=== PATIENT | female | born 1965 | race Caucasian/White ===

== ENCOUNTER 2018-07-09 18:22 | Emergency (ER) | payer OTHER ==
[2018-07-09 18:32] VITALS: BP 112/78
--- NOTE | 2018-07-09 19:21 | UC ---
Complaint Female HPI - HPI Summary HPI Summary: The pt is a 52 y/o female presenting to c/o cloudy urine since yesterday worsened today morning. She notes bilateral flank pain rated 6/ in severity, dysuria, and occasional "burning" with urination but denies fever, chills, N/ V , diarrhea, and vaginal bleeding or discharge. The pain is worst in the morning upon rising. The pt also denies a recent hx of UTIs. This is scribe Penny Burks documenting for attending Dr. Kwasi Lyons I, Dr. Kwasi Lyons , personally performed the services described in this documentation as scribed in my presence and it is both accurate and complete. 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 Onset/Duration: Lasting Hours - 24 hrs, Lasting Days Timing: Constant - Worse in the morning upon rising Severity Initially: Moderate Severity Currently: Moderate Pain Intensity: 6 Pain Scale Used: 0-10 Numeric Character: Burning Alleviating Factor(s): Position - Standing up first thing in the morning Associated Signs And Symptoms: Negative: Fever, Vaginal Bleeding/Discharge, Vaginal Discharge, Nausea, Vomiting(# Of Episodes =) - Allergies/Home Medications Allergies/Adverse Reactions: Allergies Allergy/AdvReac Type Severity Reaction Status Date / Time aspirin Allergy Swelling Verified 07/09/18 18:33 latex Allergy Rash Verified 07/09/18 18:33 Penicillins Allergy Rash Verified 07/09/18 18:33 PMH/Surg Hx/FS Hx/Imm Hx Previously Healthy: No Cardiovascular History: Other - Anemia (during ) Other Cardiovascular History: . GI/ History: Gastroesophageal Reflux, Other - Crohn's Other GI/ History: . Other Neurological History: Migraines, Other History Of: Negative For: HIV - Surgical History Surgical History: Yes Surgery Procedure, Year, and Place: C SECTION, 1985,RT FOOT NEUROMA REMOVAL - Family History Known Family History: Positive: Blood Disorder - denies FMH of clotting disorder , Other - [place] - Social History Occupation: Unemployed, Employed Full-time Lives: With Family Alcohol Use: None Substance Use Type: None Smoking Status (MU): Former Smoker Type: Cigarettes, eCigarettes Amount Used/How Often: 1-2 cigg, when stressed, maybe 3 x a week Have You Smoked in the Last Year: Yes When Did the Patient Quit Smoking/Using Tobacco: 05/2015 Household Exposure Type: Cigarettes - Immunization History Most Recent Influenza Vaccination: none Review of Systems Constitutional: Negative - fever, chills Gastrointestinal: Negative - N/ V/D Genitourinary: Negative - vaginal bleeding or discharge, Dysuria Musculoskeletal: Negative - Bilateral flank pain All Other Systems Reviewed And Are Negative: Yes Physical Exam - Summary Physical Exam Summary: General: well-appearing, no pain distress Skin: warm, color reflects adequate perfusion, dry Head: normal Eyes: EOMI, ELAYNE ENT: normal Neck: supple, nontender Respiratory: CTA, breath sounds present Cardiovascular: RRR Abdomen: soft, nontender Bowel: present Musculoskeletal: Mild tenderness to bilateral flanks , strength/ROM intact Neurological: sensory/motor intact, A&O x3 Psychological: affect/mood appropriate Triage Information Reviewed: Yes Vital Signs: Initial Vital Signs Temp 98.1 F 07/09/18 18:27 Pulse 69 07/09/18 18:27 Resp 16 07/09/18 18:27 BP 112/78 07/09/18 18:27 Pulse Ox 100 07/09/18 18:27 Vital Signs Reviewed: Yes Complaint Female Dx - Course Course Of Treatment: DISCUSSED UA RESULTS WITH THE PATIENT. SHE DENIES C/O POSSIBLE STI AND IS NOT AWARE OF ANY ABNORMAL VAGINAL DISCHARGE. DISCUSSED ABX TREATMENT FOR DYSURIA AND PELVIC EXAM. THE PATIENT PREFERS TO TREAT DYSURIA WITH ABX AND F/U WITH HER PMD IF NEEDED FOR FURTHER EVALUATION/PELVIC EXAM. SHE WILL RETURN HERE IF SHE WORSENS. - Differential Dx/Diagnosis Provider Diagnoses: DYSURIA Discharge - Sign-Out/Discharge Documenting (check all that apply): Patient Departure - Discharge Plan Condition: Stable Disposition: HOME Prescriptions: Sulfamethox/Trimethoprim DS* [Bactrim DS 800/160 TAB*] 1 tab PO BID #14 tab Patient Education Materials: Dysuria (ED) Referrals: Mildred Emanuel MD [Primary Care Provider] - Additional Instructions: FOLLOW UP WITH YOUR DOCTOR IF NOT COMPLETELY IMPROVED. GET RECHECKED FOR ANY WORSENING OF YOUR CONDITION; PAIN, FEVER, YOU FEEL ILL OR QUESTIONS OR CONCERNS. - Billing Disposition and Condition Condition: STABLE Disposition: Home
== END 2018-07-09 20:00 | disposition home or self-care (01) ==
LOC: UCEAST 18:22
DX: R30.0 Dysuria (principal); Z88.6 Allergy status to analgesic agent; Z87.891 Personal history of nicotine dependence
CPT/HCPCS: 81003; 99212; G0463

== ENCOUNTER 2018-10-27 14:12 | Emergency (ER) | payer OTHER ==
[2018-10-27 14:29] VITALS: BP 149/92
--- NOTE | 2018-10-27 14:50 | UC ---
Respiratory Complaint HPI - HPI Summary HPI Summary: 53-year-old woman comes to clinic today with a chief complaint of cough and chest congestion. Been going on about 9 days. She's had wheezing she was short of breath when she lays down and better when she stands up. No recent fevers. Sputum is yellow. Started out as upper respiratory tract infection symptoms and now it's into her chest. 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 Pain Intensity: 8 - Allergies/Home Medications Allergies/Adverse Reactions: Allergies Allergy/AdvReac Type Severity Reaction Status Date / Time aspirin Allergy Swelling Verified 10/27/18 14:29 latex Allergy Rash Verified 10/27/18 14:29 Penicillins Allergy Rash Verified 10/27/18 14:29 Home Medications: Home Medications guaiFENesin [Mucinex] 600 mg PO 10/27/18 [History] PMH/Surg Hx/FS Hx/Imm Hx GI/ History: Gastroesophageal Reflux Other History Of: Negative For: HIV - Surgical History Surgical History: Yes Surgery Procedure, Year, and Place: C SECTION, 1985,RT FOOT NEUROMA REMOVAL - Family History Known Family History: Positive: None, Blood Disorder - denies FMH of clotting disorder, Other - [place] - Social History Alcohol Use: None Substance Use Type: None Smoking Status (MU): Former Smoker Type: Cigarettes, eCigarettes Amount Used/How Often: 1-2 cigg, when stressed, maybe 3 x a week Have You Smoked in the Last Year: Yes When Did the Patient Quit Smoking/Using Tobacco: 05/2015 Household Exposure Type: Cigarettes - Immunization History Most Recent Influenza Vaccination: none Review of Systems All Other Systems Reviewed And Are Negative: Yes Constitutional: Positive: Negative Skin: Positive: Negative Eyes: Positive: Negative ENT: Positive: Sore Throat, Nasal Discharge, Sinus Congestion Respiratory: Positive: Shortness Of Breath, Cough, Other - wheezing Cardiovascular: Positive: Negative Gastrointestinal: Positive: Negative Motor: Positive: Negative Neurovascular: Positive: Negative Musculoskeletal: Positive: Negative Neurological: Positive: Negative Psychological: Positive: Negative Is Patient Immunocompromised?: No Physical Exam Triage Information Reviewed: Yes Appearance: No Pain Distress, Well-Nourished, Ill-Appearing - mild Vital Signs: Initial Vital Signs Temp 96.2 F 10/27/18 14:25 Pulse 82 10/27/18 14:25 Resp 18 10/27/18 14:25 BP 149/92 10/27/18 14:25 Pulse Ox 99 10/27/18 14:25 Vital Signs Reviewed: Yes Eye Exam: Normal Eyes: Positive: Conjunctiva Clear ENT: Positive: Pharyngeal erythema, Nasal congestion, Nasal drainage, TMs normal Neck exam: Normal Neck: Positive: Supple Respiratory: Positive: No respiratory distress, Wheezing Cardiovascular: Positive: RRR Musculoskeletal Exam: Normal Musculoskeletal: Positive: Strength Intact, ROM Intact, No Edema Neurological Exam: Normal Neurological: Positive: Alert, Muscle Tone Normal Psychological Exam: Normal Psychological: Positive: Age Appropriate Behavior Skin Exam: Normal UC Diagnostic Evaluation - Laboratory O2 Sat by Pulse Oximetry: 99 Respiratory Course/Dx - Course Course Of Treatment: Patient state out of her symptoms were discussed viral versus bacterial infections and the role of antibiotics. Patient would like to start an antibiotic now. I'll put primary care reevaluation sooner if worsen. - Differential Dx/Diagnosis Provider Diagnosis: Bronchitis with bronchospasm Discharge - Sign-Out/Discharge Documenting (check all that apply): Patient Departure All imaging exams completed and their final reports reviewed: No Studies - Discharge Plan Condition: Stable Disposition: HOME Prescriptions: Albuterol HFA INHALER* [Ventolin HFA Inhaler*] 2 puff INH Q4H PRN #1 mdi PRN Reason: Wheezing Azithromyxin RINA (NF) [Z-Rina (Zithromax) 250 mg tabs #6] 2 tab PO .TODAY, THEN 1 DAILY #6 tab Benzonatate CAP* [Tessalon 100 MG CAP*] 100 mg PO TID PRN #20 cap PRN Reason: Cough Patient Education Materials: Acute Bronchitis (ED), Bronchospasm (ED) Referrals: Mildred Emanuel MD [Primary Care Provider] - Additional Instructions: FOLLOW UP WITH YOUR DOCTOR IF NOT COMPLETELY IMPROVED. GET RECHECKED FOR ANY WORSENING OF YOUR CONDITION OR QUESTIONS OR CONCERNS. - Billing Disposition and Condition Condition: STABLE Disposition: Home
== END 2018-10-27 15:06 | disposition home or self-care (01) ==
LOC: UCEAST 14:12
DX: J20.9 Acute bronchitis, unspecified (principal); Z88.0 Allergy status to penicillin; Z88.6 Allergy status to analgesic agent; Z87.891 Personal history of nicotine dependence
CPT/HCPCS: 99212; G0463

== ENCOUNTER 2019-02-24 15:30 | Inpatient (IN) | payer MEDICAID, OTHER ==
[2019-03-09] MEDS ORDERED: Buffered Lidocaine 1% SYRIN* 1 ML/SYRINGE INTRADERM ONE (11:51)
[2019-03-10] MEDS ORDERED: Lactated Ringers 1000 ML Bag* 1,000 ML IV SCH (06:00)
[2019-03-10] MEDS ORDERED: Sodium Citrate/Citric Acid* 15 ML UDC PO ONE (06:00)
[2019-03-10] MEDS ORDERED: Sodium Citrate/Citric Acid* 15 ML UDC ONE (07:41)
[2019-03-10] MEDS ORDERED: Heparin VIAL(*) 5000 UNITS/ML VIAL (FIVE THOUSAND) ONE ×2 (07:41→14:39)
[2019-03-10] MEDS ORDERED: Buffered Lidocaine 1% SYRIN* 1 ML/SYRINGE INTRADERM ONE (07:42)
[2019-03-10] MEDS ORDERED: Ciprofloxacin 400MG IVPREMIX(* 400 MG/200 ML BAG ONE (07:42)
[2019-03-10] MEDS ORDERED: Clindamycin 900 MG IVPREMIX(* 900 MG/50 ML SDV IV ONE (07:42)
[2019-03-10] MEDS ORDERED: Lidocaine 2% PF * 5 ML VIAL ONE (09:38)
[2019-03-10] MEDS ORDERED: Propofol* 10 MG/ML 20 ML BTL ONE (09:38)
[2019-03-10] MEDS ORDERED: Rocuronium* 10 MG/ML VIAL ONE (09:38)
[2019-03-10] MEDS ORDERED: Sugammadex * 200 MG/2 ML VIAL IV PUSH ONE (09:42)
[2019-03-10] MEDS ORDERED: fentaNYL* 50 MCG/ML 2 ML VIAL (100 MCG VIAL) ONE ×2 (09:49→12:12)
[2019-03-10] MEDS ORDERED: Bupivacaine 0.25% EPI 200,000* 30 ML SDV ONE (09:53)
[2019-03-10] MEDS ORDERED: Levalbuterol HFA INHALER* 1 PUFF MDI ONE (09:55)
[2019-03-10] MEDS ORDERED: Ondansetron INJ* 2 MG/ML VIAL ONE ×2 (10:59→14:19)
[2019-03-10] MEDS ORDERED: Midazolam* 1 MG/ML 2 ML VIAL (2 MG) ONE (11:05)
[2019-03-10] MEDS ORDERED: HYDROmorphone INJ1* 1 MG/ML SYRINGE IV SLOW PU PRN (11:41)
[2019-03-10] MEDS ORDERED: HYDROcodone/ACET. 7.5/325 LIQ* 15 ML UDC PO PRN (11:41)
[2019-03-10] MEDS ORDERED: diPHENhydraMINE IV* 50 MG/ML 1 ml VIAL (BENADRYL) SLOW PUSH PRN (11:41)
[2019-03-10] MEDS ORDERED: Acetaminophen ADULT LIQ* 650 MG/20.3 ML UDC PO PRN (11:41)
[2019-03-10] MEDS ORDERED: Ketorolac INJ* 30 MG/ML 1 ML VIAL IV PRN (11:41)
--- NOTE | 2019-03-10 11:41 | OP ---
Operative Report - Blank - Operative Report Date of Operation: 03/10/19 Note: Brief Operative Note Preop Dx: Morbid obesity Postop Dx: same Procedure: Laparoscopic sleeve gastrectomy Anesthesia: GET Surgeon: Philipp Gas Welder Apprentice: VALARIE Candelario; VALENTIN Driscoll Fluids: 1900 ml RL EBL: 20 ml Specimen: portion stomach Drains: none Findings: dictated
[2019-03-10] MEDS ORDERED: DiMENhydriNATE IV* 50 MG/ML VIAL IV PUSH PRN (11:43)
[2019-03-10] MEDS ORDERED: Naloxone* 0.4 MG/ML 1 ML VIAL IV PRN (11:43)
[2019-03-10] MEDS ORDERED: Acetaminophen IV 1GM/100ML * 1,000 MG/100 ML VIAL IVPB ONE (11:43)
[2019-03-10] MEDS ORDERED: Acetaminophen IV 1GM/100ML * 100 ML ONE (11:57)
[2019-03-10] MEDS ORDERED: DiMENhydriNATE IV* 50 MG/ML VIAL ONE (11:57)
[2019-03-10] MEDS ORDERED: HYDROmorphone INJ1* 1 MG/ML SYRINGE ONE (12:13)
[2019-03-10] MEDS: HYDROmorphone INJ1* 1 MG/ML SYRINGE IV SLOW PU PRN ×2 (12:14→17:02)
[2019-03-10] MEDS: fentaNYL* 50 MCG/ML 2 ML VIAL (100 MCG VIAL) IV PRN ×2 (12:14→12:33)
[2019-03-10] MEDS: Lactated Ringers 1000 ML Bag* 1,000 ML IV SCH ×2 (14:10→21:08)
[2019-03-10] MEDS ORDERED: Ketorolac INJ* 30 MG/ML 1 ML VIAL ONE (14:19)
[2019-03-10] MEDS: Ondansetron INJ* 2 MG/ML VIAL IV PRN (14:26)
--- NOTE | 2019-03-10 14:29 | OP ---
CC: Dr. Mildred Emanuel; [facility] * DATE OF OPERATION: 03/10/19 - ROOM #332 DATE OF : 65 SURGEON: Jose Segal MD ASSISTANTS: 1. VALARIE Gonzalez 2. VALARIE Driscoll student. ANESTHESIOLOGIST: Dr. Jones. ANESTHESIA: General anesthesia. PRE-OP DIAGNOSES: 1. Clinically severe obesity. 2. Impaired fasting glycemia. 3. Gastroesophageal reflux disease. POST-OP DIAGNOSES: 1. Clinically severe obesity. 2. Impaired fasting glycemia. 3. Gastroesophageal reflux disease. OPERATIVE PROCEDURE: Laparoscopic sleeve gastrectomy. ESTIMATED BLOOD LOSS: Minimal blood loss. FLUIDS: 1800 cc of crystalloid fluid given. SPECIMEN: Portion of stomach. DRAINS: None. DESCRIPTION OF PROCEDURE: The patient was identified in the preoperative area. Case discussed with her and consent was signed. She brought to the operating room and placed on the operating table in supine position. Preoperative antibiotics were given. Sequential devices were placed on bilateral lower extremities and general anesthesia was induced, and the patient's abdomen was prepped and draped in standard surgical fashion. A time-out was performed. Folds of the umbilicus were elevated anteriorly and a Veress needle was attempted to be placed into the abdominal cavity. This proved difficult and was abandoned and a left upper quadrant incision was made at Will's point and we cut down to the fascia and a Veress needle inserted at that spot. This successfully allowed the abdomen to insufflate the pressure of 15 mmHg. We then next put a 12-mm trocar with an Optiview in the upper midline. Laparoscope was inserted through this and there was no evidence of injury from the trocar insertion or from the Veress needle, which was then removed. Additional trocars were then placed in the following position, two 5 mm in the left upper quadrant and a 12 mm in the right upper quadrant. The table was repositioned to a steep reverse Trendelenburg. A Guerita retractor was inserted through a subxiphoid incision and the liver, which was thin but with large footprint was retracted anteriorly into the right exposing the gastroesophageal fat pad. Spleen was also enlarged. The liver had no lesions, it was homogenous. Next, blunt dissection was carried out at the angle of His to expose the left crura. There was no evidence of a hiatal hernia. Next, we made a retrogastric tunnel at approximately 6 cm proximal to the pylorus along the greater curvature and the vasculature to the stomach was taken with the LigaSure device right up to her angle of His where I previously dissected. Posterior attachments were similarly taken until the stomach could be completely rotated along its axis. Next, the sleeve stomach was created utilizing [employer] Tri-Staple 60 mm purple with reinforced intelligent reloads. These were performed in the standard fashion. We utilized 460 mm and all in 145. The bougie was then removed and the staple line appeared intact with no evidence of growing. Hemostasis was excellent. The transected portion of the stomach was then placed in endoscopic retrieval bag. The Guerita retractor was removed. The liver was allowed to fall back on top of the stomach completely obscuring our sleeve stomach and next the stomach in its endoscopic retrieval bag was brought out through the right upper quadrant port site after dilating the incision. Next, the anterior fascia was closed at the right upper quadrant port site with an 0 Polysorb suture using Weck device. The abdomen was then allowed to collapse. Trocars removed under direct vision and all 5 skin incisions were reapproximated with 4-0 Monocryl subcuticular sutures followed by Steri-Strips and sterile dressing. [id number]/[facility] #: [id number] OSKAR
[2019-03-10] MEDS: Heparin VIAL(*) 5000 UNITS/ML VIAL (FIVE THOUSAND) SUBCUT SCH ×2 (14:41→21:19)
[2019-03-10] MEDS: Famotidine IV* 10 MG/ML 2 ML (20 mg) IV SLOW PU SCH (21:03)
[2019-03-11] MEDS: Lactated Ringers 1000 ML Bag* 1,000 ML IV SCH ×2 (03:55→10:26)
[2019-03-11] MEDS: Ondansetron INJ* 2 MG/ML VIAL IV PRN (04:01)
[2019-03-11] MEDS: Heparin VIAL(*) 5000 UNITS/ML VIAL (FIVE THOUSAND) SUBCUT SCH ×3 (05:50→22:17)
[2019-03-11] MEDS: Metoclopramide IV* 5 MG/ML 2 ML VIAL IV ONE ×2 (05:51→06:36)
[2019-03-11] MEDS ORDERED: Metoclopramide IV* 5 MG/ML 2 ML VIAL IV PRN (08:23)
[2019-03-11] MEDS: Famotidine IV* 10 MG/ML 2 ML (20 mg) IV SLOW PU SCH ×2 (08:34→20:54)
[2019-03-11] MEDS ORDERED: Scopolamine 1.5 mg* PATCH TRANSDERM SCH (09:00)
--- NOTE | 2019-03-11 09:51 | PN ---
Progress Note - Progress Note Date of Service: 03/11/19 SOAP: Subjective: Pt seen and examined. Feeling tired. No pain. n and V overnight thirsty Objective: Temp Pulse Resp BP Pulse Ox 98.6 F 71 18 137/64 100 03/11/19 07:37 03/11/19 07:37 03/11/19 07:53 03/11/19 07:37 03/11/19 07:53 Intake & Output 03/10/19 03/11/19 03/11/19 22:59 06:59 14:59 Intake Total 980 980 Output Total 0 520 200 Balance 980 460 -200 a and ox3, nad lungs clear abdo: soft/ND/NT dressing intact, ecchymosis at upper inc no calf tenderness UGI P Assessment: POD 1 sleeve gastrectomy Plan: UGi boogie liquids if UGI wnl antiemetics d/c planning for possibly tomorrow
[2019-03-11] MEDS: D5W 1/2 NS KCl 20 Meq 1000 ML* 1,000 ML IV SCH ×2 (11:48→20:53)
[2019-03-12] MEDS: D5W 1/2 NS KCl 20 Meq 1000 ML* 1,000 ML IV SCH (04:49)
[2019-03-12] MEDS: Heparin VIAL(*) 5000 UNITS/ML VIAL (FIVE THOUSAND) SUBCUT SCH (05:40)
[2019-03-12 07:46] VITALS: BP 152/64
[2019-03-12] MEDS: Famotidine IV* 10 MG/ML 2 ML (20 mg) IV SLOW PU SCH (08:25)
--- NOTE | 2019-03-12 10:33 | PN ---
Progress Note - Progress Note Date of Service: 03/12/19 Note: S: POD #2. Also seen by Dr. Segal. Much better this a.m.; no further vomiting. Jansi clears well, but has not had enough in yet. No sig pain. O: Vital Signs - 8 hr 03/12/19 03/12/19 03/12/19 04:04 06:07 07:28 Temperature 98.8 F 98.9 F Pulse Rate 83 83 68 Respiratory 16 16 Rate Blood Pressure 136/31 156/76 152/64 (mmHg) O2 Sat by Pulse 93 94 Oximetry 03/12/19 08:10 Temperature Pulse Rate Respiratory 16 Rate Blood Pressure (mmHg) O2 Sat by Pulse Oximetry Gen: appears comfortable Heart: reg Lungs: clear Abd: lap sites clean; +BS; soft; mild to mod incisional tenderness only; remainder nontender. UGI 03/11: normal A/P: s/p sleeve gastrectomy; home later today if po intake adequate; instructions reviewed
--- NOTE | 2019-03-12 11:29 | DS ---
CC: [facility]; Dr. Mildred Emanuel [facility] * DISCHARGE SUMMARY: DATE OF ADMISSION: 03/10/19 DATE OF DISCHARGE: 03/12/19 ATTENDING SURGEON: Dr. Jose Segal * (dictated by VALARIE Gonzalez). HOSPITAL COURSE: Please refer to admission history and physical and operative note for details. Patient underwent laparoscopic sleeve gastrectomy with Dr. Segal on 03/10/19. Her postoperative course was marked by some vomiting the first night and the morning of postop day 1. This improved with antiemetics. Subsequent upper GI study later in the day on postoperative day 1 was normal and she is not experiencing nausea or vomiting since that time. Her pain is under good control on postop day 2 and she appears to be tolerating bariatric clear liquids well, though has not had enough overall oral intake to determine discharge status, though it is anticipated she will be drinking well through the morning and able to be discharged early this afternoon. Please see separate progress note for physical exam. She will be discharged home in good condition and instructed to resume her usual medications including Prilosec once daily on a scheduled basis. She has a followup at [facility] next week. She was also seen this morning by Dr. Segal. VALARIE GONZALEZ [id number]/[facility] #: [id number] [facility]
== END 2019-03-12 11:44 | disposition home or self-care (01) | DRG 403 ==
LOC: AA 03-10 06:57 → SSU 03-10 11:41
PROVIDERS: ADMIT Surgery; ATTEND Surgery
PROC: 0DB64Z3 Excision of Stomach, Percutaneous Endoscopic Approach, Vertical (ICD-10-PCS; principal; 2019-03-10 09:00)
DX: E66.01 Morbid (severe) obesity due to excess calories (principal); K21.9 Gastro-esophageal reflux disease without esophagitis; F41.9 Anxiety disorder, unspecified; F32.9 Major depressive disorder, single episode, unspecified; G47.33 Obstructive sleep apnea (adult) (pediatric); R73.01 Impaired fasting glucose; J43.9 Emphysema, unspecified; Z68.42 Body mass index [BMI] 45.0-49.9, adult; Z88.0 Allergy status to penicillin; Z88.8 Allergy status to other drugs, medicaments and biological substances; Z91.040 Latex allergy status; Z83.3 Family history of diabetes mellitus; Z80.52 Family history of malignant neoplasm of bladder; Z82.49 Family history of ischemic heart disease and other diseases of the circulatory system; Z83.49 Family history of other endocrine, nutritional and metabolic diseases; Z84.0 Family history of diseases of the skin and subcutaneous tissue; Z80.0 Family history of malignant neoplasm of digestive organs; Z87.891 Personal history of nicotine dependence
CPT/HCPCS: 43775; 74246; 88307; A9270-GY; J0744; J1170; J1240; J1644; J1885; J2250; J2405; J2704; J2765; J3010

== ENCOUNTER → 2019-03-31 12:05 | Emergency (ER) | payer OTHER ==
[2019-03-31 12:20] VITALS: BP 95/81
== END | disposition left against medical advice (07) ==
LOC: ED 12:05
DX: Z98.84 Bariatric surgery status (principal); R11.10 Vomiting, unspecified; R10.9 Unspecified abdominal pain; Z53.21 Procedure and treatment not carried out due to patient leaving prior to being seen by health care provider

== ENCOUNTER 2019-03-31 16:12 | Observation (INO) | payer OTHER ==
[2019-03-31] MEDS ORDERED: Morphine INJ* 2 MG/ML 1 ML SYRINGE (TWO MG - NEW SYRINGE VERSION) IV PRN (17:24)
[2019-03-31] MEDS: Ondansetron INJ* 2 MG/ML VIAL IV SCH ×2 (18:09→22:27)
[2019-03-31] MEDS: Pantoprazole IV* 40 MG IV SCH (18:09)
[2019-03-31] MEDS: Lactated Ringers 1000 ML Bag* 1,000 ML IV SCH (18:09)
[2019-03-31 19:42] LABS: Hematocrit 45 % (35-47); Hemoglobin 15.2 g/dL (12.0-16.0); Mean Corpuscular HGB Conc 34 g/dL (31-36); Mean Corpuscular Hemoglobin 30 pg (27-31); Mean Corpuscular Volume 90 fL (80-97); Mean Platelet Volume 9.9 fL (7.4-10.4); Platelet Count 194 10^3/uL (150-450); Red Blood Count 5.05 10^6 /uL (3.70-4.87); Red Cell Distribution Width 15 % (10.5-15); White Blood Count 8.6 10^3/uL (3.5-10.8)
[2019-03-31 19:59] LABS: Calcium 8.8 mg/dL (8.6-10.3); EGFR African American 111.4 (>60); EGFR Non-African American 92.1 (>60); Magnesium 1.6 mg/dL (1.9-2.7); Phosphorus 3.3 mg/dL (2.5-5.0); Potassium 3.6 mmol/L (3.5-5.0)
[2019-03-31] MEDS: Heparin VIAL(*) 5000 UNITS/ML VIAL (FIVE THOUSAND) SUBCUT SCH (22:26)
[2019-04-01] MEDS: Lactated Ringers 1000 ML Bag* 1,000 ML IV SCH ×4 (00:34→18:03)
[2019-04-01] MEDS: Ondansetron INJ* 2 MG/ML VIAL IV SCH ×6 (02:23→22:08)
[2019-04-01] MEDS: Heparin VIAL(*) 5000 UNITS/ML VIAL (FIVE THOUSAND) SUBCUT SCH ×3 (05:52→22:07)
[2019-04-01] MEDS ORDERED: Iohexol 300* (CONTRAST) 10 ML SDV IV SCH (09:30)
--- NOTE | 2019-04-01 16:43 | PN ---
Progress Note - Progress Note Date of Service: 04/01/19 SOAP: Subjective: Patient seen and examined. resolving nausea. Patient's appetite is returning. She is thirsty. Positive flatus. No bowel movement. Objective: Temp Pulse Resp BP Pulse Ox 98.3 F 61 16 101/59 98 04/01/19 15:42 04/01/19 15:42 04/01/19 15:42 04/01/19 15:42 04/01/19 15:42 Alert and oriented 3, no apparent distress lungs clear to auscultation bilaterally abdomen: Soft, nondistended, nontender. Extremities within normal limits. Duplex negative upper GI study reviewed and within normal limits with mild reflux CT scan report reviewed Assessment: dehydration and dysphagia status post sleeve gastrectomy Plan: liquid diet. Continue hydration. Discharge home tomorrow likely
[2019-04-01] MEDS: Pantoprazole IV* 40 MG IV SCH (18:00)
[2019-04-02] MEDS: Lactated Ringers 1000 ML Bag* 1,000 ML IV SCH ×2 (00:03→05:20)
[2019-04-02] MEDS: Ondansetron INJ* 2 MG/ML VIAL IV SCH ×3 (02:36→10:00)
[2019-04-02] MEDS: Heparin VIAL(*) 5000 UNITS/ML VIAL (FIVE THOUSAND) SUBCUT SCH (05:22)
[2019-04-02 12:36] VITALS: BP 128/61
--- NOTE | 2019-05-26 21:03 | HP ---
HISTORY AND PHYSICAL: DATE OF ADMISSION: 03/31/19 HISTORY OF PRESENT ILLNESS: Ms. Dominguez is a 53-year-old female postop day #21 from a laparoscopic sl eeve gastrectomy, who presented to the office with continued complaints of dysphagia along with nause a and vomiting and a concern for dehydration. She was direct admitted and underwent CT scan of abdom en and pelvis. The patient describes 3 days of worsening of nausea and vomiting after mostly uneventful postoperativ e course with sleeve gastrectomy, which she underwent for clinically severe obesity. The patient had also been describing loose bowel movements. PAST MEDICAL HISTORY: Past medical history of clinically severe obesity, anxiety, depression, gastro esophageal reflux disease, and impaired fasting glycemia. PAST SURGICAL HISTORY: Steel's neuroma resection, a , and sleeve gastrectomy. MEDICATIONS: 1. Omeprazole. 2. Multivitamin. ALLERGIES: ASPIRIN, LATEX, and PENICILLIN. REVIEW OF SYSTEMS: No fevers or chills. No shortness of breath or chest pain. Minimal abdominal com plaints. PHYSICAL EXAMINATION GENERAL: Alert and oriented x3, in no apparent distress. HEENT: Normocephalic, atraumatic. Sclerae anicteric. Mucous membranes are dry. LUNGS: Clear to auscultation. ABDOMEN: Soft, nondistended, and nontender. Minimal tenderness at the right upper quadrant with no erythema. Healing surgical incisions. No rebound tenderness. RECTAL: Exam not performed. EXTREMITIES: Within normal limits. IMPRESSION: Postoperative day #21 sleeve gastrectomy with dysphagia and dehydration. RECOMMENDATIONS: IV fluids, antiemetics, CT scan of the abdomen and pelvis, out of bed and DVT and G I prophylaxis. [id number]/[facility] #: [id number]
--- NOTE | 2019-05-26 23:33 | DS ---
CC: [facility]; Primary Care Doctor DISCHARGE SUMMARY: DATE OF ADMISSION: 03/31/19 DATE OF DISCHARGE: 04/02/19 HOSPITAL COURSE: Ms. Lesa Dominguez was admitted on postop day 21 from a sleeve gastrectomy with deh ydration and dysphagia. She was treated with IV fluids and she underwent a CT scan of the abdomen an d pelvis, which showed no significant findings, inflammatory otherwise. She underwent an upper GI st udy due to her dysphagia, which also was within normal limits with small amount of reflux and a small hiatal hernia. The patient was hydrated and doing well, passing gas and plan was for discharge home . On the day of discharge, the patient was examined and no significant findings were noted. She was di scharged home for planned followup at the [facility], given a bariatric diet and proton pump inhibitor with planned followup in our offices. She was discharged ho ca in stable condition at that time. [id number]/[facility] #: [id number]
== END 2019-04-02 13:25 | disposition home or self-care (01) | DRG 422 ==
LOC: OBSVTOIN 16:58 → SSU 16:58 → INTOOBSV 16:58
PROVIDERS: ADMIT Surgery; ATTEND Surgery
DX: E86.0 Dehydration (principal); Z68.42 Body mass index [BMI] 45.0-49.9, adult; R13.19 Other dysphagia; E66.01 Morbid (severe) obesity due to excess calories; K21.9 Gastro-esophageal reflux disease without esophagitis; G47.33 Obstructive sleep apnea (adult) (pediatric); F41.9 Anxiety disorder, unspecified; F32.9 Major depressive disorder, single episode, unspecified; Z90.3 Acquired absence of stomach [part of]; Z80.7 Family history of other malignant neoplasms of lymphoid, hematopoietic and related tissues; Z91.040 Latex allergy status; Z88.6 Allergy status to analgesic agent; Z80.0 Family history of malignant neoplasm of digestive organs; Z80.52 Family history of malignant neoplasm of bladder; Z79.899 Other long term (current) drug therapy; Z88.0 Allergy status to penicillin; Z83.3 Family history of diabetes mellitus; Z82.49 Family history of ischemic heart disease and other diseases of the circulatory system; Z87.891 Personal history of nicotine dependence
CPT/HCPCS: 36415; 74177; 74246; 80048; 83690; 83735; 84100; 85027; G0378; J1644; J2405; Q9967

== ENCOUNTER 2019-04-30 17:23 | Emergency (ER) | payer OTHER ==
[2019-04-30 17:42] VITALS: BP 141/80
--- NOTE | 2019-04-30 18:01 | UC ---
Abdominal Pain Female HPI - HPI Summary HPI Summary: This patient is a 53-year-old female who presents to the urgent care with a chief complaint of having nausea, vomiting, and left flank pain. The patient reports that the symptoms started last night and today she has not been able to keep anything and her belly. She continues to have nausea and vomiting. She reports that the pain is 6-7 out of 10. Is not radiating, dull pain and is associated with the nausea and vomiting. She also reports 1 episode of diarrhea today. She reports that she has history of gastric sleeve on March 2019. 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 RT FOOT NEUROMA REMOVAL ( 3 years ago). Gastric Sleeve (03/10/19) - Family History Known Family History: Positive: None, Blood Disorder - denies H of clotting disorder, Other - [place] - Social History Alcohol Use: None Substance Use Type: None Smoking Status (MU): Former Smoker Type: Cigarettes, eCigarettes Amount Used/How Often: 1-2 cigg, when stressed, maybe 3 x a week Have You Smoked in the Last Year: Yes When Did the Patient Quit Smoking/Using Tobacco: 05/2015 Household Exposure Type: Cigarettes - Immunization History Most Recent Influenza Vaccination: August 2018 Most Recent Pneumonia Vaccination: none Review of Systems All Other Systems Reviewed And Are Negative: Yes Constitutional: Positive: Chills Skin: Positive: Negative Eyes: Positive: Negative ENT: Positive: Negative Respiratory: Positive: Shortness Of Breath Cardiovascular: Positive: Negative Gastrointestinal: Positive: Abdominal Pain, Vomiting, Diarrhea Genitourinary: Positive: Negative Motor: Positive: Negative Neurovascular: Positive: Negative Musculoskeletal: Positive: Negative Neurological: Positive: Negative Psychological: Positive: Negative Is Patient Immunocompromised?: No Physical Exam - Summary Physical Exam Summary: VITAL SIGNS: Reviewed. GENERAL: Patient is a well developed and nourished female who is lying comfortable in the examining table. Patient is not in any acute respiratory distress. HEAD AND FACE: Normocephalic and atraumatic. EYES: PERRLA, EOMI x 2, No injected conjunctiva. EARS: Hearing grossly intact. Ear canals and tympanic membranes are WNL. MOUTH: Oropharynx within normal limits. NECK: Supple, trachea is midline, no adenopathy, no JVD. CHEST: Symmetric, no tenderness at palpation LUNGS: Clear to auscultation bilaterally. No wheezing or crackles. CVS: RRR, S1 and S2 present, no murmurs or gallops appreciated. ABDOMEN: Soft, positive left flank pain, and positive CVA tenderness in the right side. No signs of distention. Positive bowel sounds. No rebound no guarding, and no masses palpated. No abdominal bruit or pulsations. EXTREMITIES: FROM in all major joints, no edema, no cyanosis or clubbing. NEURO: Alert and oriented x 3. No acute neurological deficits. Speech is normal. SKIN: Dry and warm Triage Information Reviewed: Yes Appearance: Pain Distress, Obese Vital Signs: Initial Vital Signs Temp 98.1 F 04/30/19 17:36 Pulse 75 04/30/19 17:36 Resp 16 04/30/19 17:36 BP 141/80 04/30/19 17:36 Pulse Ox 98 04/30/19 17:36 Abd Pain Female Course/Dx - Course Course Of Treatment: The patient continues to have nausea and vomiting, unable to keep anything by mouth, and the patient is having left flank pain. Since the patient has history of gastric sleeve the patient will be transferred to the emergency department for further workup and management. Patient is hemodynamically stable alert and oriented 3. The patient declined the ambulance transfer. - Differential Dx/Diagnosis Provider Diagnosis: Flank pain Discharge - Sign-Out/Discharge Documenting (check all that apply): Patient Departure All imaging exams completed and their final reports reviewed: No Studies - Discharge Plan Condition: Stable Disposition: HOME-RECOMMEND TO ED Patient Education Materials: Acute Nausea and Vomiting (ED), Flank Pain (ED) Referrals: Mildred Emanuel MD [Primary Care Provider] - Additional Instructions: The patient will be discharged to the emergency department for further workup and management. The patient declined ambulance transport.. - Billing Disposition and Condition Condition: STABLE Disposition: Home-Recommend to ED
== END 2019-04-30 18:02 | disposition home health service (06) ==
LOC: UCEAST 17:23
DX: R10.9 Unspecified abdominal pain (principal); Z87.891 Personal history of nicotine dependence; E66.01 Morbid (severe) obesity due to excess calories
CPT/HCPCS: 99212; G0463

== ENCOUNTER 2019-04-30 18:21 | Inpatient (IN) | payer OTHER ==
[2019-04-30 21:07] LABS: ABS Basophils 0.1 10^3/ul (0-0.2); ABS Eosinophils 0.1 10^3/ul (0-0.6); ABS Lymphocytes 1.3 10^3/ul (1.0-4.8); ABS Monocytes 0.6 10^3/ul (0-0.8); ABS Neutrophils 9.9 10^3/ul (1.5-7.7); Hematocrit 49 % (35-47); Hemoglobin 16.5 g/dL (12.0-16.0); Lymphocyte % 10.7 %; Mean Corpuscular HGB Conc 34 g/dL (31-36); Mean Corpuscular Hemoglobin 30 pg (27-31); Mean Corpuscular Volume 89 fL (80-97); Mean Platelet Volume 9.4 fL (7.4-10.4); Platelet Count 220 10^3/uL (150-450); Red Blood Count 5.51 10^6 /uL (3.70-4.87); Red Cell Distribution Width 16 % (10.5-15); White Blood Count 11.9 10^3/uL (3.5-10.8)
[2019-04-30 21:16] LABS: INR 1.18 (0.82-1.09)
[2019-04-30 21:24] LABS: ALT 22 U/L (7-52); AST 19 U/L (13-39); Albumin 3.6 g/dL (3.2-5.2); Albumin/Globulin Ratio 1.1 (1-3); Alkaline Phosphatase 78 U/L (34-104); Anion Gap 11 mmol/L (2-11); BUN/Creatinine Ratio 8.4 (8-20); Blood Urea Nitrogen 9 mg/dL (6-24); C Reactive Protein 22.17 mg/L (<8.01); CO2 Carbon Dioxide 27 mmol/L (22-32); Calcium 9.7 mg/dL (8.6-10.3); Chloride 102 mmol/L (101-111); EGFR African American 64.9 (>60); EGFR Non-African American 53.6 (>60); Globulin 3.3 g/dL (2-4); Glucose 84 mg/dL (70-100); Potassium 3.9 mmol/L (3.5-5.0); Sodium 140 mmol/L (135-145); Total Protein 6.9 g/dL (6.4-8.9)
--- NOTE | 2019-04-30 21:47 | ED ---
Abdominal Pain/Female - HPI Summary HPI Summary: The patient is a 53 y/o F presenting to [facility] accompanied by with a chief complaint of sudden onset LLQ pain with nausea and vomiting since yesterday. She reports that she had a gastric sleeve in March 2019 at [facility] [place] Segal, and she hasn't been feeling well since. Currently, the pain is rated 9/10 in severity. She additionally c/o decreased appetite. She denies CP. Hx of GERD, no cardiac or pulmonary hx. Nonsmoker, no EtOH, no substance use. 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 Negative: Chest Pain Allergies/Adverse Reactions: Allergies Allergy/AdvReac Type Severity Reaction Status Date / Time aspirin Allergy Severe Swelling Verified 04/30/19 18:27 latex Allergy Severe Rash Verified 04/30/19 18:27 Penicillins Allergy Severe Rash Verified 04/30/19 18:27 Home Medications: Home Medications Acetaminophen [Tylenol] 650 mg PO Q8H PRN 04/30/19 [History Confirmed 04/30/19] PMH/Surg Hx/FS Hx/Imm Hx Endocrine/Hematology History: Reports: Hx Anemia Denies: Hx Diabetes Cardiovascular History: Denies: Hx Hypertension, Hx Myocardial Infarction, Hx Pacemaker/ICD Respiratory History: Denies: Hx Asthma, Hx Chronic Obstructive Pulmonary Disease (COPD), Hx Lung Cancer GI History: Reports: Hx Crohn's Disease, Hx Gastroesophageal Reflux Disease, Other GI Disorders Musculoskeletal History: Reports: Hx Tendonitis - lower arms, currently right foot, Other Musculoskeletal History - polychondritis, but not currently, occasional flare-ups Sensory History: Reports: Hx Contacts or Glasses - reading Denies: Hx Hearing Aid Opthamlomology History: Reports: Hx Contacts or Glasses - reading Neurological History: Reports: Hx Migraine - in 20-30's, tregus pierced, none since piercing, Hx Seizures - childhood, reports fever seizures Denies: Hx Transient Ischemic Attacks (TIA) Psychiatric History: Denies: Hx Anxiety, Hx Panic Disorder - Cancer History Hx Chemotherapy: No - Surgical History Surgery Procedure, Year, and Place: C SECTION (1985). RT FOOT NEUROMA REMOVAL ( 3 years ago). Gastric Sleeve (03/10/19) Hx Anesthesia Reactions: No Infectious Disease History: No Infectious Disease History: Denies: Hx Clostridium Difficile, Hx Hepatitis, Hx Human Immunodeficiency Virus (HIV), Hx of Known/Suspected MRSA, Hx Shingles, Hx Tuberculosis, Hx Known/ Suspected VRE, Hx Known/Suspected VRSA, History Other Infectious Disease, Traveled Outside the [place] in Last 30 Days - Family History Known Family History: Positive: Blood Disorder - denies FMH of clotting disorder , Other - CA Negative: Cardiac Disease, Hypertension, Diabetes - Social History Alcohol Use: None Hx Substance Use: No Substance Use Type: Reports: None Hx Tobacco Use: Yes Smoking Status (MU): Former Smoker Type: Cigarettes, eCigarettes Amount Used/How Often: 1-2 cigg, when stressed, maybe 3 x a week Have You Smoked in the Last Year: Yes Review of Systems Negative: Chest Pain Positive: Abdominal Pain - LLQ, Vomiting, Nausea, Other - decreased appetite All Other Systems Reviewed And Are Negative: Yes Physical Exam - Summary Physical Exam Summary: Appearance: Well appearing, no pain distress Skin: warm, dry, reflects adequate perfusion Head/face: normal Eyes: EOMI, ELAYNE ENT: normal Neck: supple, non-tender Respiratory: CTA, breath sounds present Cardiovascular: RRR, pulses symmetrical Abdomen: non-tender, soft Musculoskeletal: normal, strength/ROM intact Neuro: normal, sensory motor intact, A&Ox3 Triage Information Reviewed: Yes Vital Signs On Initial Exam: Initial Vitals Temp Pulse Resp BP Pulse Ox 97.9 F 80 15 148/77 97 04/30/19 18:23 04/30/19 18:23 04/30/19 18:23 04/30/19 18:23 04/30/19 18:23 Vital Signs Reviewed: Yes Diagnostics - Vital Signs Vital Signs Temp Pulse Resp BP Pulse Ox 04/30/19 20:43 98.6 F 73 17 158/82 99 04/30/19 20:17 98.6 F 73 17 158/82 99 04/30/19 18:23 97.9 F 80 15 148/77 97 - Laboratory Lab Results: Lab Results 04/30/19 04/30/19 04/30/19 Range/Units 20:57 20:57 20:57 WBC 11.9 H (3.5-10.8) 10^3/uL RBC 5.51 H (3.70-4.87) 10^6 /uL Hgb 16.5 H (12.0-16.0) g/dL Hct 49 H (35-47) % MCV 89 (80-97) fL MCH 30 (27-31) pg MCHC 34 (31-36) g/dL RDW 16 H (10.5-15) % Plt Count 220 (150-450) 10^3/uL MPV 9.4 (7.4-10.4) fL Neut % (Auto) 83.0 % Lymph % (Auto) 10.7 % [place] % (Auto) 4.9 % Eos % (Auto) 1.0 % Baso % (Auto) 0.4 % Absolute Neuts (auto) 9.9 H (1.5-7.7) 10^3/ul Absolute Lymphs (auto) 1.3 (1.0-4.8) 10^3/ul Absolute Monos (auto) 0.6 (0-0.8) 10^3/ul Absolute Eos (auto) 0.1 (0-0.6) 10^3/ul Absolute Basos (auto) 0.1 (0-0.2) 10^3/ul Absolute Nucleated RBC 0.0 10^3/ul Nucleated RBC % 0.0 INR (Anticoag Therapy) 1.18 H (0.82-1.09) APTT 35.0 (26.0-38.0) seconds Sodium 140 (135-145) mmol/L Potassium 3.9 (3.5-5.0) mmol/L Chloride 102 (101-111) mmol/L Carbon Dioxide 27 (22-32) mmol/L Anion Gap 11 (2-11) mmol/L BUN 9 (6-24) mg/dL Creatinine 1.07 H (0.51-0.95) mg/dL Est GFR ( Amer) 64.9 (>60) Est GFR (Non-Af Amer) 53.6 (>60) BUN/Creatinine Ratio 8.4 (8-20) Glucose 84 (70-100) mg/dL Lactic Acid (0.5-2.0) mmol/L Calcium 9.7 (8.6-10.3) mg/dL Total Bilirubin 0.60 (0.2-1.0) mg/dL AST 19 (13-39) U/L ALT 22 (7-52) U/L Alkaline Phosphatase 78 (34-104) U/L Troponin I 0.72 H* (<0.04) ng/mL C-Reactive Protein 22.17 H (<8.01) mg/L Total Protein 6.9 (6.4-8.9) g/dL Albumin 3.6 (3.2-5.2) g/dL Globulin 3.3 (2-4) g/dL Albumin/Globulin Ratio 1.1 (1-3) Lipase 44 (11.0-82.0) U/L 04/30/19 Range/Units 20:57 WBC (3.5-10.8) 10^3/uL RBC (3.70-4.87) 10^6 /uL Hgb (12.0-16.0) g/dL Hct (35-47) % MCV (80-97) fL MCH (27-31) pg MCHC (31-36) g/dL RDW (10.5-15) % Plt Count (150-450) 10^3/uL MPV (7.4-10.4) fL Neut % (Auto) % Lymph % (Auto) % [place] % (Auto) % Eos % (Auto) % Baso % (Auto) % Absolute Neuts (auto) (1.5-7.7) 10^3/ul Absolute Lymphs (auto) (1.0-4.8) 10^3/ul Absolute Monos (auto) (0-0.8) 10^3/ul Absolute Eos (auto) (0-0.6) 10^3/ul Absolute Basos (auto) (0-0.2) 10^3/ul Absolute Nucleated RBC 10^3/ul Nucleated RBC % INR (Anticoag Therapy) (0.82-1.09) APTT (26.0-38.0) seconds Sodium (135-145) mmol/L Potassium (3.5-5.0) mmol/L Chloride (101-111) mmol/L Carbon Dioxide (22-32) mmol/L Anion Gap (2-11) mmol/L BUN (6-24) mg/dL Creatinine (0.51-0.95) mg/dL Est GFR ( Amer) (>60) Est GFR (Non-Af Amer) (>60) BUN/Creatinine Ratio (8-20) Glucose (70-100) mg/dL Lactic Acid 0.9 (0.5-2.0) mmol/L Calcium (8.6-10.3) mg/dL Total Bilirubin (0.2-1.0) mg/dL AST (13-39) U/L ALT (7-52) U/L Alkaline Phosphatase (34-104) U/L Troponin I (<0.04) ng/mL C-Reactive Protein (<8.01) mg/L Total Protein (6.4-8.9) g/dL Albumin (3.2-5.2) g/dL Globulin (2-4) g/dL Albumin/Globulin Ratio (1-3) Lipase (11.0-82.0) U/L Result Diagrams: 04/30/19 20:57 04/30/19 20:57 Lab Statement: Any lab studies that have been ordered have been reviewed, and results considered in the medical decision making process. - Radiology CXR Radiology Interpretation Completed By: Radiologist Summary of Radiographic Findings: No acute infiltrate. ED physician has reviewed this radiology report. Abd XR Radiology Interpretation Completed By: Radiologist Summary of Radiographic Findings: No significant findings for obstruction. ED physician has reviewed this radiology report. - EKG 2140 Cardiac Rate: NL - 72 BPM EKG Rhythm: Sinus Rhythm Summary of EKG Findings: No ST elevations Re-Evaluation - Re-Evaluation First Eval Re-Evaluation Time: 23:15 Comment: I discussed admission with the patient due to significance of results. Abdominal Pain Fem Course/Dx - Course Course Of Treatment: The patient is a 53 y/o F presenting to [facility] accompanied by with a chief complaint of sudden onset LLQ pain with nausea, vomiting , and decreased appetite since yesterday. Upon physical exam, the patient exhibits no acute abnormalities. In the ED course, the patient was administered Zofran for nausea. Blood work obtained. Troponin is 0.72. EKG reveals NSR at 72 BPM. CXR impression reveals no acute infiltrate. Abd XR impression reveals no findings for obstruction. She is diagnosed with chest pain with rule out of DE and nausea and vomiting. At 2300, I discussed the patients case with Dr. Leonardo , hospitalist, and she accepts the patient for admission at this time. She agrees with the plan and understands the need for admission at this time. - Diagnoses Differential Diagnosis: Positive: Appendicitis, Diverticulitis, Renal Colic, Urinary Tract Infection Provider Diagnoses: Chest pain, rule out acute myocardial infarction, Nausea & vomiting, Renal colic - Provider Notifications Discussed Care Of Patient With: Lila Leonardo - hospitalist Time Discussed With Above Provider: 23:00 Instructed by Provider To: Other - I discussed the patient's case with Dr. Leonardo, and she accepts the patient for admission at this time. Discharge - Sign-Out/Discharge Documenting (check all that apply): Patient Departure - Patient is accept for admission by Dr. Leonardo. Patient Received Moderate/Deep Sedation with Procedure: No - Discharge Plan Condition: Stable Disposition: ADMITTED TO [facility] - Billing Disposition and Condition Condition: STABLE Disposition: Admitted to [facility] - Attestation Statements Document Initiated by Kelley: Yes Documenting Scribe: Trena Martinez Provider For Whom Kelley is Documenting (Include Credential): Dr. Reji Hickey MD Scribe Attestation: Trena Palacios scribed for Dr. Reji Hickey MD on 05/01/19 at 0255. Scribe Documentation Reviewed: Yes Provider Attestation: The documentation as recorded by the Trena amin accurately reflects the service I personally performed and the decisions made by me, Dr. Reji Hickey MD Status of Scribadonis Document: Viewed
[2019-04-30] MEDS ORDERED: Ondansetron INJ* 2 MG/ML VIAL IV ONE (21:59)
[2019-04-30 22:00] LABS: Magnesium 1.9 mg/dL (1.9-2.7)
[2019-04-30 23:07] LABS: Troponin I 0.72 ng/mL (<0.04)
[2019-05-01] MEDS ORDERED: Acetaminophen TAB* 325 MG PO PRN (00:28)
[2019-05-01] MEDS ORDERED: Calcium Carbonate CHEW TAB* 500 MG (TUMS) PO PRN (00:28)
[2019-05-01] MEDS ORDERED: NS 0.9% 1000 ML** 1,000 ML IV SCH (00:30)
[2019-05-01] MEDS ORDERED: Iodixanol 320 (CONTRAST) 500 ML MDV IV ONE (00:59)
[2019-05-01] MEDS ORDERED: Iodixanol 320 (CONTRAST) 100 ML SDV IV ONE (01:01)
[2019-05-01 01:46] LABS: Troponin I 0.67 ng/mL (<0.04)
--- NOTE | 2019-05-01 02:22 | HP ---
CC: Dr. Emanuel; Dr. Segal * HISTORY AND PHYSICAL: DATE OF ADMISSION: 05/01/19 PRIMARY CARE PROVIDER: Dr. Emanuel. CHIEF COMPLAINT: Nausea, vomiting, dry heaves, and left lower quadrant abdominal pain. HISTORY OF PRESENT ILLNESS: Ms. Dominguez is a 53-year-old female who underwent laparoscopic sleeve gastrectomy on 03/10/[address] Segal. The patient was discharged and ultimately readmitted to the hospital on 03/31/19 through , where she was treated for nausea and vomiting. She states that generally she had been doing okay up until a few days ago when she again started with nausea, vomiting, and dry heaves. She states that she has not been able to eat or drink anything because it has been coming right back up. She states that she developed left lower quadrant abdominal discomfort yesterday morning. She thinks it may be related to straining with dry heaves. She states that she has been moving her bowels. Her last bowel movement was this evening in the emergency room. She described the stool is slimy in nature, but she has not been having increased frequency of bowel movements. She has been only passing small amounts of stool, however. She notes that the abdominal discomfort is worse with movement and dry heaving and thing really seems to make it better other than being still. The patient also states that in general she has a hard time burping and she thinks that if she could burp she would feel generally better. She denies any chest pain. She denies any shortness of breath. PAST MEDICAL HISTORY: 1. Obesity. 2. GERD. 3. Anxiety/depression. PAST SURGICAL HISTORY: 1. Steel's neuroma excision. 2. . 3. Laparoscopic sleeve gastrectomy. MEDICATIONS: 1. Omeprazole 40 mg p.o. daily. 2. Tylenol 650 mg p.o. q.8 hours p.r.n. pain. ALLERGIES: ASPIRIN, PENICILLIN, LATEX. FAMILY HISTORY: Mom has a history of small cell cancer that sounds to be metastatic. Dad's history is unknown as he when she was 3 years old. SOCIAL HISTORY: The patient is a former smoker of about 30 years, smoking approximately half a pack per day. She denies any alcohol use. 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 She is . She has 5 children, 2 of which are , 1 at 2 days old, other one as a child in a drowning accident. She is unsure what her 2-day-old from. REVIEW OF SYSTEMS: A complete 11-system review of systems is obtained. Pertinent and positives and negative are as per HPI and otherwise negative. PHYSICAL EXAMINATION GENERAL: The patient is a well-developed, middle-aged female, seen sitting up in the stretcher, in no acute distress. VITAL SIGNS: Blood pressure 135/69, pulse 65, respirations 16, temp 98.6, O2 sat 97% on room air. HEENT: Pupils are equal and round. Extraocular muscles are intact. Oropharynx is clear. Oral mucosa is moist. The patient wears upper and lower dentures. There is no submandibular, cervical, or supraclavicular adenopathy. Thyroid is not enlarged. No thyroid nodules noted. PULMONARY: Lungs are clear to auscultation bilaterally. CARDIAC: Normal S1, S2. Regular rate and rhythm. I do not appreciate any murmurs. There is no lower extremity edema, however, the right calf seen slightly larger than the left. ABDOMEN: Bowel sounds are present. Abdomen is soft, nontender, nondistended. Incisions are healed well. MUSCULOSKELETAL: There is no cyanosis or clubbing of the digits. There is full active range of motion of all 4 extremities. Skin is warm and dry. There are no rashes. NEURO: Cranial nerves II through XII are grossly intact. Sensation is intact to light touch throughout. Strength is 5/5 and symmetric to both upper and lower extremities bilaterally. PSYCH: The patient is alert. She is oriented x3. Affect appears appropriate. DIAGNOSTIC STUDIES/LAB DATA: WBC 11.9, hemoglobin 16.5, hematocrit 49, platelets 220. INR 1.18. Sodium 140, potassium 3.9, chloride 102, CO2 of 27, BUN 9, creatinine 1.07, glucose 84, lactic acid 0.9, calcium 9.7. Magnesium 1.9. Bilirubin 0.6. AST 19, ALT 22, alk phos 78. Troponin 0.72. CRP 22.17. Albumin 3.6. Lipase 44. EKG reveals normal sinus rhythm with very low voltage in the inferior leads. No acute ST-T wave abnormalities were noted. Chest x-ray to my interpretation appears clear. Abdominal x-ray reveals a nonspecific bowel gas pattern to my interpretation. ASSESSMENT AND PLAN: Ms. Dominguez is a 53-year-old female who underwent laparoscopic sleeve gastrectomy on 03/10/19, who returned to the emergency room with complaints of nausea, vomiting, dry heaves and left lower quadrant abdominal pain. 1. Nausea, vomiting, dry heaves and abdominal pain. The patient states that in general since her surgery, she has had a few good days but generally has had difficult time with recovery from her surgery. She has had very frequent nausea and vomiting. She has not been able to keep anything down. The patient' s labs would indicate that she is volume deplete as her creatinine is elevated above her baseline and she appears to be hemoconcentrated with an elevated hemoglobin and hematocrit. The patient will receive normal saline. She will receive antiemetics. A CT scan of the abdomen and pelvis has been ordered in the emergency room. We are awaiting the images of this to be taken. I doubt that there is anything ominous going on the patient's belly as she has no pain on palpation and she sounds to have normally functioning bowels. The patient will be given a regular diet where she can pick and choose what she wants to eat. 2. Elevated troponin. It is unclear why the patient's troponin is elevated. This was re-run and has been confirmed to be positive. The patient denies any chest pain. She does have left lower quadrant abdominal pain. However, I doubt that this represents an angina equivalent. There are no concerning features on her EKG. There are no signs that this elevated troponin represents demand ischemia from any particular process. I will add a D-dimer to her labs that have already been drawn to evaluate for possible PE. Her right calf seems slightly larger than the left, though there is no pain in the calf nor is the leg swollen. A followup troponin will be ordered for 1 a.m. and a followup EKG will also be obtained. If her D- dimer comes up positive, we will need to consider CTA of the chest. If no clear cause is found for the elevated troponin , perhaps she should undergo an ischemic workup while hospitalized. I am going to hold off on treating for an acute coronary syndrome at this time as the patient again is completely asymptomatic in terms of chest pain. 3. Gastroesophageal reflux disease. We will continue Protonix daily. The patient does state that she is having bad acid reflux currently. I am going to order p.r.n. Tums. 4. DVT prophylaxis. According to the Adult Thrombosis Prophylaxis Risk Factor Assessment Guide, the patient has a total risk factor score of 3 making her high risk. Heparin 5000 units subcutaneous q.8 hours will be utilized as DVT prophylaxis. 5. Code status is full. TIME SPENT: Sixty five minutes was spent admitting this patient. [id number]/CPS #: [id number] [id number]
[2019-05-01] MEDS ORDERED: Heparin VIAL(*) 5000 UNITS/ML VIAL (FIVE THOUSAND) SUBCUT SCH (06:00)
[2019-05-01] MEDS: cefTRIAXone(*) 1 GM in NS 0.9% 50 ML* 50 ML IVPB SCH (07:25)
[2019-05-01] MEDS: Pantoprazole TAB * 40 MG TAB PO SCH (07:28)
[2019-05-01] MEDS: Simethicone TAB* 80 MG TAB.CHEW PO SCH ×3 (07:28→16:32)
[2019-05-01 09:22] LABS: Urine Appearance Cloudy; Urine Bacteria Absent (Absent); Urine Bilirubin Negative (Negative); Urine Blood 3+ (Negative); Urine Color Yellow; Urine Glucose Negative (Negative); Urine Ketones 1+ (Negative); Urine Nitrite Negative (Negative); Urine Protein Negative (Negative); Urine Red Blood Cell 3+(>10/hpf) (Absent); Urine Squamous Epithelial Cell Present (Absent); Urine Urobilinogen Negative (Negative); Urine White Blood Cell 2+(11-20/hpf) (Absent)
--- NOTE | 2019-05-01 10:15 | CONS ---
CC: [facility]; Primary Care Doctor. SURGICAL CONSULTATION REPORT: DATE OF CONSULT: 05/01/19 HISTORY OF PRESENT ILLNESS: Ms. Dominguez was admitted to the hospitalist service in the overnight shaqu[place] od with nausea, vomiting, and dry heaves. She is a 53-year-old female who is just under 8 weeks stat us post sleeve gastrectomy. The patient's postoperative course was only eventful in that it required an admission for nausea and vomiting in the early postoperative time. Patient presented to the emergency room yesterday with 3-day history of nausea, vomiting, and inabili ty to burp and keep solids and liquids down. She describes having flank pain when she presented to [facility] where she was sent over to the emergency room. The patient's workup in the emergency room included labs and CAT scan. Labs were suggestive of dehyd ration with elevated hematocrit and white blood cell count along with chemistry panel, which showed a creatinine of 1.07, which was elevated from the patient's baseline. She also had mildly elevated tr oponins, normal LFTs. Her CT scan was suggestive of a mildly obstructing left ureteral stone, this w as a p.o. and IV contrast study. The patient states that she was in otherwise good health. About a week ago, she was having difficult y eating certain foods, but other foods were manageable namely chicken and water. She has been losin g weight. She has been having normal bowel movements. At times, she did feel food getting stuck at the sleeve stomach, this did lead to vomiting intermittently prior to the onset of these more signifi cant symptoms. PAST MEDICAL HISTORY: Morbid obesity, gastroesophageal reflux disease, and anxiety. PAST SURGICAL HISTORY: Sleeve gastrectomy, . MEDICATIONS: Omeprazole 40 mg daily. ALLERGIES: List reviewed. SOCIAL HISTORY: She lives with her and she quit smoking. Denies alcohol use. REVIEW OF SYSTEMS: No headache, no shortness of breath or chest pain. Flank pain is described, inab ility to tolerate liquids at this time. Passing flatus and having normal bowel movements, dysuria th at started recently. No fevers or chills. PHYSICAL EXAMINATION: Patient is afebrile. Vital signs are stable. She is alert and oriented x3. She is sleepy. Head, Ears, Eyes, Nose, and Throat: Normocephalic, atraumatic. Sclerae are anicteric . Mucous membranes are moist. Abdomen is soft, obese, nontender. Left-sided CVA tenderness. Rectal exam not performed. Extremities within normal limits. No edema. DIAGNOSTIC STUDIES/LAB DATA: Labs are reviewed. IMPRESSION: Dehydration, possibly secondary to laparoscopic sleeve gastrectomy and inability to tole rate liquids, this is also complicated now with a kidney stone and this may be the patient's overwhel bina issue. Recommendation is for hydration. Urology evaluation. Regarding elevated troponins, this will be deferred to the hospitalist service as to whether the patient requires any additional tropon in values. The CAT scan does show passage of contrast through the sleeve. I do not feel that this i s obstructing and patient can resume liquids. We will follow her as an outpatient at the [facility] and follow her during this hospitalization as well. Again, re commendation IV hydration, consultation, and repeat labs. [id number]/[facility] #: [id number]
[2019-05-01] MEDS: Carvedilol TAB* 3.125 MG PO SCH ×2 (10:50→21:12)
[2019-05-01 10:54] LABS: EGFR African American 82.4 (>60); EGFR Non-African American 68.1 (>60)
[2019-05-01 11:02] LABS: ABS Eosinophils 0.2 10^3/ul (0-0.6); ABS Lymphocytes 1.6 10^3/ul (1.0-4.8); ABS Monocytes 0.4 10^3/ul (0-0.8); Hematocrit 45 % (35-47); Hemoglobin 14.9 g/dL (12.0-16.0); Lymphocyte % 19.2 %; Mean Corpuscular HGB Conc 34 g/dL (31-36); Mean Corpuscular Hemoglobin 30 pg (27-31); Mean Corpuscular Volume 89 fL (80-97); Mean Platelet Volume 10.2 fL (7.4-10.4); Nucleated Red Blood Cells % 0.1; Platelet Count 174 10^3/uL (150-450); Red Cell Distribution Width 16 % (10.5-15); White Blood Count 8.3 10^3/uL (3.5-10.8)
[2019-05-01] MEDS: NS 0.9% 1000 ML** 1,000 ML IV SCH (11:16)
[2019-05-01] MEDS: Ondansetron INJ* 2 MG/ML VIAL IV PRN ×2 (11:17→20:04)
[2019-05-01] MEDS: Heparin VIAL(*) 5000 UNITS/ML VIAL (FIVE THOUSAND) IV SCH (11:21)
[2019-05-01] MEDS: Heparin DRIP 25,000 UNITS(*) 25,000 UNITS/500 ML BAG IV SCH (11:26)
[2019-05-01 13:14] LABS: HDL Cholesterol 34.4 mg/dL
--- NOTE | 2019-05-01 13:40 | CONS ---
CONSULTATION REPORT: DATE OF CONSULT: 05/01/19 HISTORY OF PRESENT ILLNESS: I was asked by the hospitalist service to see this 53- year-old white female because of distal left ureteral calculus. Mrs. Dominguez underwent bariatric surgery in the form of a sleeve gastrectomy by Dr. Segal about 2 months ago. Her post-operative course was smooth except for some nausea. She was doing fine until 3 days ago when she started having recurrent episodes of left lower quadrant pain. The pain was radiating to the left flank. There was no associated fever, chills, or gross hematuria. She then started having urgency and frequency, but no burning on urination. Because of the worsening symptoms, she presented to emergency room last night. She had a CT of the abdomen and pelvis with oral and IV contrast. This study showed 3 to 4 mm calculus in the distal left ureter just proximal to the ureterovesical junction associated with mild left hydronephrosis. No other urinary calculi or abnormalities were noted on the CT, and there was no other explanation for her abdominal and flank pain. At her initial visit, the urinalysis was positive for esterase, but negative for nitrite. Her white count was 11,000, and on repeat today, it is down to 8600. Her serum creatinine today is 0.9. Past history is negative for renal diseases or calculi. No history of hematuria. The patient today is very comfortable and she has minimal pain. She is being worked up for slight elevation of the troponin with cardiology consultation. IMPRESSION: A 3 mm calculus in the distal left ureter that is most likely responsible for the abdominal and flank pain. Considering the size of the stone and the fact that it is already in the distal ureter, the plan is for conservative management with fluid and pain medication as needed. The positive esterase on U/A is most likely a contaminant. If the pain becomes difficult to control or the patient shows any signs of urinary infection, then endoscopic drainage will be recommended. [id number]/CPS #: [id number] MTDD
[2019-05-01 14:06] LABS: Erythrocyte Sed Rate 29 mm/Hr (0-29)
--- NOTE | 2019-05-01 14:29 | CONS ---
CC: Dr. Segal; Mayank Gavin MD; Melvin Whiteside CARDIOLOGY CONSULTATION REPORT: DATE OF CONSULT: 05/01/19 REASON FOR EVALUATION: Abnormal troponin. HISTORY OF PRESENT ILLNESS: This is a very pleasant 53-year-old woman who has a history of obesity and underwent laparoscopic sleeve gastrectomy on 03/10/[address] Segal. She was admitted to hospital on 03/31/19 through 04/02/19 and was treated for nausea and vomiting. She did okay again until the last 3 days when she developed dry heaves. She says she can have dry heaves for half hour, several times a day. She denies any chest discomfort. She had some lower abdominal pain after several of the dry heaves, which she said is worse with dry heaves. She denies any syncope or near syncope, orthopnea, palpitations, exertional chest pain. She says when she feels well she walks for a mile each day with her son and has no problems doing that. She denies diabetes, hyperlipidemia, hypertension. She does have a history of tobacco use, discontinued about 6 years ago and she smoked half a pack a day for 25 years. PAST MEDICAL HISTORY: Includes obesity, gastroesophageal reflux, anxiety, and depression. PAST SURGICAL HISTORY: Includes laparoscopic sleeve gastrectomy in March, Steel neuroma excision, in 1985. CURRENT MEDICATIONS: Include: 1. Acetaminophen 650 q.4 p.r.n. 2. Tums. 3. Carvedilol 3.125 mg b.i.d., started as an inpatient. 4. Ceftriaxone 1 g q.24. 5. Zofran 4 mg IV q.6 p.r.n. 6. Protonix 40 mg daily. 7. Simethicone 80 mg a day. ALLERGIES: Her allergies include ASPIRIN, PENICILLIN. With ASPIRIN, she gets eyelid swelling; lactose intolerance and LATEX allergy. She uses Tylenol for pain. FAMILY HISTORY: Her father of an accident when she was 3, his history is unknown and mother is alive at 80. She has 11 siblings. No premature coronary disease. SOCIAL HISTORY: She drinks approximately 1 cup of coffee or less a day. She denies alcohol use. She is , has 5 children. 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 REVIEW OF SYSTEMS: Review of systems x10 was negative except as above. PHYSICAL EXAM: She is a well-developed, well-nourished obese female, in no apparent distress, lying flat. Weight 213 pounds. Blood pressure 124/61, pulse of 59, O2 sats 96% on room air. Temperature 98.2. No significant JVD. Carotids 2+ without bruits. No cervical adenopathy. No thyromegaly. Extraocular muscles intact. Cardiac Exam: S1, S2 with soft 1/6 to 2/6 holosystolic murmur at the apex. Chest was clear. Extremities: No CVAT. Abdomen: Obese. Bowel sounds present. Nontender. Femoral pulses intact without bruits. Distal pulses intact. No edema. Motor strength 5/5 bilaterally. Deep tendon reflexes 2/4. Alert and oriented x3. DIAGNOSTIC STUDIES/LAB DATA: Labs include white count of 11.9 yesterday, 8.3 today; hemoglobin of 14.9; hematocrit of 45; platelet count of 174. Sodium 140 yesterday; potassium 3.9; BUN 9; creatinine 1.07, today it was 0.87. Lactic acid 0.9. Troponin was 0.72 yesterday and 0.67 today. CRP was elevated at 22.17. D- dimer was less than 200. Urine was cloudy, 2+ white cells. An abdominal CT revealed mildly obstructing 3 mm calculus in the distal third of the left ureter, expected findings status post sleeve gastrectomy. EKG revealed low voltage vertical axis, no acute changes. Her EKG from at 2141 revealed some nonspecific T-wave changes in V1, V2. Chest x-ray from 04/30/19, revealed no evidence of cardiopulmonary abnormality. IMPRESSION: My impression is that Ms. Dominguez has a history of gastric sleeve placement last month, now with dry heaves, nausea, elevated troponin of unclear etiology. She also has possible pyuria and nephrolithiasis and elevated CRP of unclear etiology. She was seen by Dr. Segal. It was not felt that the nausea and vomiting was related to obstruction of the GI tract. Other possibilities include myocarditis as well as ischemic heart disease or an adjacent inflammation from the recent surgery. Pulmonary embolism is also on the differential though less likely given the negative D-dimer. For the time being , I recommend the followin. I discussed the case with Dr. England. 2. I would start IV heparin as you are doing. 3. Unfortunately, she is allergic to ASPIRIN, so we will hold that. Consider adding Plavix. 4. I would continue on the low-dose beta-ana. 5. I would follow serial troponins and EKGs. 6. I would consider a CT angio to evaluate for pulmonary embolism and a collection adjacent to the surgery. 7. I would consider adding a sed rate. We would check a lipid profile. Further recommendation will depend on her clinical course. MEDICAL DECISION MAKING: Complex. [id number]/[facility] #: [id number]
--- NOTE | 2019-05-01 14:48 | PN ---
Subjective Date of Service: 05/01/19 Interval History: Nausea+, vomitting+.No flank pain.C/o dysuria Objective Active Medications: Acetaminophen (Tylenol Tab*) 650 mg PO Q4H PRN PRN Reason: PAIN Calcium Carbonate (Tums*) 500 mg PO TID PRN PRN Reason: indigestion Last Admin: 05/01/19 01:36 Dose: 500 mg Carvedilol (Coreg Tab*) 3.125 mg PO BID [facility] Last Admin: 05/01/19 10:50 Dose: Not Given Heparin Sodium (Porcine) (Heparin Vial(*)) 0 units IV .PER PROTOCOL [facility] Last Admin: 05/01/19 11:21 Dose: 4,000 units Ceftriaxone Sodium 1 gm/ (Sodium Chloride) 50 mls @ 200 mls/hr IVPB Q24H [facility] Last Admin: 05/01/19 07:25 Dose: 200 mls/hr Heparin Sodium/Dextrose (Heparin Drip 25,000 Units(*)) 25,000 units in 500 mls @ 0 mls/hr IV PER RATE [facility]; Protocol Last Admin: 05/01/19 11:26 Dose: 17 mls/hr Sodium Chloride (Ns 0.9% 1000 Ml) 1,000 mls @ 75 mls/hr IV PER RATE [facility] Last Admin: 05/01/19 11:16 Dose: 75 mls/hr Ondansetron HCl (Zofran Inj*) 4 mg IV Q6H PRN PRN Reason: NAUSEA Last Admin: 05/01/19 11:17 Dose: 4 mg Pantoprazole Sodium (Protonix Tab*) 40 mg PO DAILY [facility] Last Admin: 05/01/19 07:28 Dose: 40 mg Simethicone (Mylicon Tab*) 80 mg PO AC [facility] Last Admin: 05/01/19 11:18 Dose: 80 mg Vital Signs - 8 hr 05/01/19 05/01/19 07:30 11:53 Temperature 98.2 F 98.1 F Pulse Rate 59 59 Respiratory 16 16 Rate Blood Pressure 124/61 124/60 (mmHg) O2 Sat by Pulse 96 98 Oximetry Oxygen Devices in Use Now: None Eyes: No Scleral Icterus Ears/Nose/Mouth/Throat: NL Teeth, Lips, Gums Neck: NL Appearance and Movements; NL JVP Respiratory: Symmetrical Chest Expansion and Respiratory Effort, Clear to Auscultation Cardiovascular: NL Sounds; No Murmurs; No JVD Abdominal: NL Sounds; No Tenderness; No Distention Neurological: Alert and Oriented x 3 Result Diagrams: 05/01/19 09:06 05/01/19 09:06 Additional Lab and Data: Lab Results 04/30/19 04/30/19 04/30/19 Range/Units 20:57 20:57 20:57 WBC 11.9 H (3.5-10.8) 10^3/uL RBC 5.51 H (3.70-4.87) 10^6 /uL Hgb 16.5 H (12.0-16.0) g/dL Hct 49 H (35-47) % MCV 89 (80-97) fL MCH 30 (27-31) pg MCHC 34 (31-36) g/dL RDW 16 H (10.5-15) % Plt Count 220 (150-450) 10^3/uL MPV 9.4 (7.4-10.4) fL Neut % (Auto) 83.0 % Lymph % (Auto) 10.7 % [place] % (Auto) 4.9 % Eos % (Auto) 1.0 % Baso % (Auto) 0.4 % Absolute Neuts (auto) 9.9 H (1.5-7.7) 10^3/ul Absolute Lymphs (auto) 1.3 (1.0-4.8) 10^3/ul Absolute Monos (auto) 0.6 (0-0.8) 10^3/ul Absolute Eos (auto) 0.1 (0-0.6) 10^3/ul Absolute Basos (auto) 0.1 (0-0.2) 10^3/ul Absolute Nucleated RBC 0.0 10^3/ul Nucleated RBC % 0.0 INR (Anticoag Therapy) 1.18 H (0.82-1.09) APTT 35.0 (26.0-38.0) seconds Sodium 140 (135-145) mmol/L Potassium 3.9 (3.5-5.0) mmol/L Chloride 102 (101-111) mmol/L Carbon Dioxide 27 (22-32) mmol/L Anion Gap 11 (2-11) mmol/L BUN 9 (6-24) mg/dL Creatinine 1.07 H (0.51-0.95) mg/dL Est GFR ( Amer) 64.9 (>60) Est GFR (Non-Af Amer) 53.6 (>60) BUN/Creatinine Ratio 8.4 (8-20) Glucose 84 (70-100) mg/dL Lactic Acid (0.5-2.0) mmol/L Calcium 9.7 (8.6-10.3) mg/dL Total Bilirubin 0.60 (0.2-1.0) mg/dL AST 19 (13-39) U/L ALT 22 (7-52) U/L Alkaline Phosphatase 78 (34-104) U/L Troponin I 0.72 H* (<0.04) ng/mL C-Reactive Protein 22.17 H (<8.01) mg/L Total Protein 6.9 (6.4-8.9) g/dL Albumin 3.6 (3.2-5.2) g/dL Globulin 3.3 (2-4) g/dL Albumin/Globulin Ratio 1.1 (1-3) Lipase 44 (11.0-82.0) U/L 04/30/19 Range/Units 20:57 WBC (3.5-10.8) 10^3/uL RBC (3.70-4.87) 10^6 /uL Hgb (12.0-16.0) g/dL Hct (35-47) % MCV (80-97) fL MCH (27-31) pg MCHC (31-36) g/dL RDW (10.5-15) % Plt Count (150-450) 10^3/uL MPV (7.4-10.4) fL Neut % (Auto) % Lymph % (Auto) % [place] % (Auto) % Eos % (Auto) % Baso % (Auto) % Absolute Neuts (auto) (1.5-7.7) 10^3/ul Absolute Lymphs (auto) (1.0-4.8) 10^3/ul Absolute Monos (auto) (0-0.8) 10^3/ul Absolute Eos (auto) (0-0.6) 10^3/ul Absolute Basos (auto) (0-0.2) 10^3/ul Absolute Nucleated RBC 10^3/ul Nucleated RBC % INR (Anticoag Therapy) (0.82-1.09) APTT (26.0-38.0) seconds Sodium (135-145) mmol/L Potassium (3.5-5.0) mmol/L Chloride (101-111) mmol/L Carbon Dioxide (22-32) mmol/L Anion Gap (2-11) mmol/L BUN (6-24) mg/dL Creatinine (0.51-0.95) mg/dL Est GFR ( Amer) (>60) Est GFR (Non-Af Amer) (>60) BUN/Creatinine Ratio (8-20) Glucose (70-100) mg/dL Lactic Acid 0.9 (0.5-2.0) mmol/L Calcium (8.6-10.3) mg/dL Total Bilirubin (0.2-1.0) mg/dL AST (13-39) U/L ALT (7-52) U/L Alkaline Phosphatase (34-104) U/L Troponin I (<0.04) ng/mL C-Reactive Protein (<8.01) mg/L Total Protein (6.4-8.9) g/dL Albumin (3.2-5.2) g/dL Globulin (2-4) g/dL Albumin/Globulin Ratio (1-3) Lipase (11.0-82.0) U/L Assess/Plan/Problems-Billing Assessment: - Patient Problems (1) Nephrolithiasis Current Visit: Yes Status: Acute Code(s): N20.0 - CALCULUS OF KIDNEY SNOMED Code(s): 65288488 Comment: 3 mm L ureteral stone with mild obstruction and symptoms Small stone and will likely pass with conservative management Pt's symptoms and UA with blood this am likely suggestive At risk of hyperoxaluria and oxalate stones Appreciate Urology input (2) UTI (urinary tract infection) Current Visit: Yes Status: Acute Comment: UA done this am after being on Ceftriaxone Culture pending Poss UTI On Ceftriaxone IV (3) ACS (acute coronary syndrome) Current Visit: Yes Status: Acute Code(s): I24.9 - ACUTE ISCHEMIC HEART DISEASE, UNSPECIFIED SNOMED Code(s): 157544004 Comment: Troponin elevation Unclear etiology Myocarditis/ ACS and other etiology including PE possible in light of recent symptoms On Heparin drip,plavix,coreg ( small dose HR low) for ACS till clinical picture clear Appreciate Dr Gavin input Also getting CTA ( eventhough D dimer neg) due to recent surgery and troponin increase and atypical symptoms to r/o PE and on drip (4) Gastric bypass status for obesity Current Visit: Yes Status: Acute Code(s): Z98.84 - BARIATRIC SURGERY STATUS SNOMED Code(s): 217925317 Comment: Sleeve gastectomy in March Appreciate Dr Segal's input Similar presentation and hospitalization earlier in March Prior CT reviewed
[2019-05-01] MEDS ORDERED: Iohexol 350* (CONTRAST) 500 ML MDV IV ONE (15:03)
[2019-05-01] MEDS: Clopidogrel TAB* 75 MG PO SCH (16:32)
[2019-05-01 18:07] LABS: Troponin I 0.69 ng/mL (<0.04)
[2019-05-02] MEDS: NS 0.9% 1000 ML** 1,000 ML IV SCH ×2 (04:13→18:04)
[2019-05-02 06:02] LABS: ABS Basophils 0.1 10^3/ul (0-0.2); ABS Eosinophils 0.3 10^3/ul (0-0.6); ABS Lymphocytes 1.6 10^3/ul (1.0-4.8); ABS Monocytes 0.5 10^3/ul (0-0.8); ABS Neutrophils 5.3 10^3/ul (1.5-7.7); Eosinophil % 3.7 %; Hematocrit 42 % (35-47); Hemoglobin 14.3 g/dL (12.0-16.0); Lymphocyte % 20.9 %; Mean Corpuscular HGB Conc 34 g/dL (31-36); Mean Corpuscular Hemoglobin 30 pg (27-31); Mean Corpuscular Volume 89 fL (80-97); Mean Platelet Volume 9.2 fL (7.4-10.4); Nucleated Red Blood Cells % 0.1; Platelet Count 183 10^3/uL (150-450); Red Blood Count 4.75 10^6 /uL (3.70-4.87); Red Cell Distribution Width 15 % (10.5-15); White Blood Count 7.7 10^3/uL (3.5-10.8)
[2019-05-02 06:17] LABS: Anion Gap 10 mmol/L (2-11); BUN/Creatinine Ratio 7.7 (8-20); Blood Urea Nitrogen 6 mg/dL (6-24); C Reactive Protein 28.23 mg/L (<8.01); CO2 Carbon Dioxide 24 mmol/L (22-32); Calcium 8.4 mg/dL (8.6-10.3); Chloride 105 mmol/L (101-111); Cholesterol 154 mg/dL; EGFR African American 93.5 (>60); EGFR Non-African American 77.3 (>60); Glucose 83 mg/dL (70-100); LDL Cholesterol 90 mg/dL; Potassium 3.2 mmol/L (3.5-5.0); Sodium 139 mmol/L (135-145); Triglycerides 168 mg/dL
[2019-05-02] MEDS: Heparin VIAL(*) 5000 UNITS/ML VIAL (FIVE THOUSAND) IV SCH ×2 (07:06→22:35)
[2019-05-02 07:23] LABS: Erythrocyte Sed Rate 30 mm/Hr (0-29)
[2019-05-02] MEDS: Simethicone TAB* 80 MG TAB.CHEW PO SCH ×2 (07:29→11:09)
[2019-05-02] MEDS: cefTRIAXone(*) 1 GM in NS 0.9% 50 ML* 50 ML IVPB SCH (07:29)
[2019-05-02] MEDS ORDERED: Potassium Chlor TAB* 20 MEQ TAB.ER PO ONE (08:00)
[2019-05-02] MEDS: Clopidogrel TAB* 75 MG PO SCH (08:31)
[2019-05-02] MEDS: Pantoprazole TAB * 40 MG TAB PO SCH (08:31)
[2019-05-02] MEDS: Carvedilol TAB* 3.125 MG PO SCH ×2 (08:31→20:30)
--- NOTE | 2019-05-02 08:37 | ECHO ---
*[facility]* [place] [address] Fax #: [phone] Patient: Alberto, Height: 62 in / Lesa Smith 157.5 cm : 1965 Weight: 212.6 lb / Study Date: 05/02/2019 96.6 kg Age: 53 BP: 99 / 64 Gender: F BMI/BSA: 39 kg/m^2 / HR: 62 bpm 1.96 m^2 *Cd Manufacturing Supervisor: * Jaycee Riggs [facility] *Referring Physician: * Mayank Gavin MD *Reading Physician: * Mayank Gavin MD Indications: Abnormal EKG. History: Risk factors: Obese. Labs, prior tests, procedures, and surgery: Gastric bypass. Performed recently. Conclusions Summary: 1. Left ventricle: Systolic function is normal. The estimated ejection fraction is 55-60%. 2. Mitral valve: There is trace regurgitation. 3. Aortic valve: A bicuspid morphology cannot be excluded. The leaflets are mildly thickened. The findings are consistent with very mild stenosis. Study data: Procedure: Transthoracic echocardiography was performed. Image quality was fair. Complete 2D, spectral Doppler, and color flow Doppler. Location: Bedside. Patient status: Inpatient. Patient room number: 453. Rhythm: Normal sinus rhythm. Findings Left ventricle: The cavity size is at the lower limits of normal. Wall thickness is normal. Systolic function is normal. The estimated ejection fraction is 55-60%. Wall motion is normal; there are no regional wall motion abnormalities. Left ventricular diastolic function parameters are normal. Right ventricle: The cavity size is normal. Systolic function is normal. Left atrium: The atrium is normal in size. Right atrium: The atrium is normal in size. Mitral valve: The leaflets are mildly thickened. There is no evidence of stenosis. There is trace regurgitation. Aortic valve: Not well visualized. A bicuspid morphology cannot be excluded. The leaflets are mildly thickened. The findings are consistent with very mild stenosis. There is no significant regurgitation. Tricuspid valve: The leaflets are normal thickness. There is no evidence of stenosis. There is physiologic regurgitation. Pulmonic valve: Not well visualized. There is no evidence of stenosis. There is trivial regurgitation. Aorta: Aortic root: The aortic root is appears normal. Ascending aorta: The ascending aorta is appears normal. Aortic arch: The aortic arch is poorly visualized. Pericardium: A prominent pericardial fat pad is present. There is no pericardial effusion. Pulmonary arteries: The main pulmonary artery is normal-sized. Systolic pressure can not be accurately estimated. Systemic veins: Inferior vena cava: The vessel is normal in size. The respirophasic diameter changes are in the normal range (>= 50%). Measurements Left ventricle Value Ref Right atrium Value Ref APPLE, LAX (L) 3.6 cm 3.8 - 5.2 SI dim, ES 4.8 cm 3.4 - 5.3 ESD, LAX 2.2 cm 2.2 - 3.5 ML dim, ES, A4C 3.8 cm 2.6 - 4.4 FS, LAX 38 % 27 - 45 SI dim, ES, A4C 4.8 cm 3.4 - 5.3 PW, ED, LAX 0.9 cm 0.6 - 0.9 SI dim/bsa, ES, A4C 2.4 cm/m^2 1.9 - 3.1 FS 38 % 27 - 45 Estimated RAP 3 mm Hg --------- PW, ED 0.9 cm 0.6 - 0.9 E', lat sissy, TDI 12.0 cm/sec >=10.0 Aortic valve Value R ef E/e', lat sissy, 10 Sissy diam, ED 1.7 cm ---- ----- TDI Peak v, S 2.1 m/sec --------- E', med sissy, TDI 11.0 cm/sec >=7.0 VTI, S 43.6 cm - -------- E/e', med sissy, 11 Mean grad, S 8.0 mm Hg ---- ----- TDI Peak grad, S 17.0 mm Hg --------- E', avg, TDI 11.5 cm/sec LVOT/AV, VTI ratio 0.57 ---- ----- E/e', avg, TDI 10 <=14 NABIL, VTI 1.80 cm^2 - -------- NABIL, Vmax 1.78 cm^2 --------- LVOT Value Ref Diam, S 2.00 cm Mitral valve Value Ref Area 3.1 cm^2 Peak E 1.16 m/sec --------- Peak jesenia, S 1.19 m/sec Peak A 0.77 m/sec --------- VTI, S 25.0 cm Decel time 183 ms --------- Peak grad, S 6 mm Hg Peak grad, D 5.4 mm Hg --------- Mean grad, S 3 mm Hg Peak E/A ratio 1.5 --------- SV 79 ml SV/bsa 40 ml/m^2 Pulmonic valve Value Ref Peak v, S 1.45 m/sec --------- Ventricular septum Value Ref Peak grad, S 8.0 mm Hg --------- IVS, ED (H) 1.0 cm 0.6 - 0.9 Aortic root Value Ref Right ventricle Value Ref Root diam 2.7 cm <4.1 APPLE, LAX 3.7 cm APPLE minor ax, 3.9 cm Ascending aorta Value Ref A4C AAo AP diam, S 2.9 cm --------- APPLE minor ax, (H) 4.3 cm 1.9 - 3.5 A4C mid Decending aorta Value Ref Raj peak jesenia 0.94 m/sec --------- Left atrium Value Ref AP dim, ES 3.20 cm 2.70 - Inferior vena cava Value Ref 3.80 Diam 1.8 cm --------- ML dim, A4C 4.4 cm SI dim, A4C 5.1 cm Vol/bsa, ES, 1-p 25 ml/m^2 11 - 40 A4C Vol/bsa, ES, A/L 23 ml/m^2 16 - 34 Legend: (L) and (H) sherri values outside specified reference range. Prepared and electronically signed by Mayank Gavin MD 05/02/2019 08:37
[2019-05-02] MEDS: Ondansetron INJ* 2 MG/ML VIAL IV PRN (11:09)
[2019-05-02] MEDS ORDERED: Al Hydrox/Mg Hydrox/Simet LIQ* 30 ML UDC PO ONE (11:21)
--- NOTE | 2019-05-02 11:48 | PN ---
Subjective Date of Service: 05/02/19 Interval History: Ongoing dry retching and reports that she is unable to burp and so has discomfort.Otherwise denies any complaints. Abd pain improved.No dysuria Objective Active Medications: Acetaminophen (Tylenol Tab*) 650 mg PO Q4H PRN PRN Reason: PAIN Al Hydrox/Mg Hydrox/Simethicone (Maalox Plus*) 30 ml PO Q6H [facility] Calcium Carbonate (Tums*) 500 mg PO TID PRN PRN Reason: indigestion Last Admin: 05/01/19 01:36 Dose: 500 mg Carvedilol (Coreg Tab*) 3.125 mg PO BID [facility] Last Admin: 05/02/19 08:31 Dose: 3.125 mg Clopidogrel Bisulfate (Plavix Tab*) 75 mg PO DAILY [facility] Last Admin: 05/02/19 08:31 Dose: 75 mg Heparin Sodium (Porcine) (Heparin Vial(*)) 0 units IV .PER PROTOCOL [facility] Last Admin: 05/02/19 07:06 Dose: 2,000 units Ceftriaxone Sodium 1 gm/ (Sodium Chloride) 50 mls @ 200 mls/hr IVPB Q24H [facility] Last Admin: 05/02/19 07:29 Dose: 200 mls/hr Heparin Sodium/Dextrose (Heparin Drip 25,000 Units(*)) 25,000 units in 500 mls @ 0 mls/hr IV PER RATE [facility]; Protocol Last Admin: 05/01/19 11:26 Dose: 17 mls/hr Sodium Chloride (Ns 0.9% 1000 Ml) 1,000 mls @ 75 mls/hr IV PER RATE [facility] Last Admin: 05/02/19 04:13 Dose: 75 mls/hr Ondansetron HCl (Zofran Inj*) 4 mg IV Q6H PRN PRN Reason: NAUSEA Last Admin: 05/02/19 11:09 Dose: 4 mg Pantoprazole Sodium (Protonix Tab*) 40 mg PO DAILY [facility] Last Admin: 05/02/19 08:31 Dose: 40 mg Vital Signs - 8 hr 05/02/19 05/02/19 07:56 08:00 Temperature 98.4 F Pulse Rate 64 Respiratory 20 20 Rate Blood Pressure 122/60 (mmHg) O2 Sat by Pulse 95 Oximetry Oxygen Devices in Use Now: None Eyes: No Scleral Icterus Ears/Nose/Mouth/Throat: NL Teeth, Lips, Gums Neck: NL Appearance and Movements; NL JVP Respiratory: Symmetrical Chest Expansion and Respiratory Effort, Clear to Auscultation Cardiovascular: NL Sounds; No Murmurs; No JVD Abdominal: NL Sounds; No Tenderness; No Distention Lymphatic: No Cervical Adenopathy Skin: No Rash or Ulcers Neurological: Alert and Oriented x 3 Result Diagrams: 05/02/19 05:48 05/02/19 05:48 Additional Lab and Data: Lab Results 04/30/19 04/30/19 04/30/19 Range/Units 20:57 20:57 20:57 WBC 11.9 H (3.5-10.8) 10^3/uL RBC 5.51 H (3.70-4.87) 10^6 /uL Hgb 16.5 H (12.0-16.0) g/dL Hct 49 H (35-47) % MCV 89 (80-97) fL MCH 30 (27-31) pg MCHC 34 (31-36) g/dL RDW 16 H (10.5-15) % Plt Count 220 (150-450) 10^3/uL MPV 9.4 (7.4-10.4) fL Neut % (Auto) 83.0 % Lymph % (Auto) 10.7 % [place] % (Auto) 4.9 % Eos % (Auto) 1.0 % Baso % (Auto) 0.4 % Absolute Neuts (auto) 9.9 H (1.5-7.7) 10^3/ul Absolute Lymphs (auto) 1.3 (1.0-4.8) 10^3/ul Absolute Monos (auto) 0.6 (0-0.8) 10^3/ul Absolute Eos (auto) 0.1 (0-0.6) 10^3/ul Absolute Basos (auto) 0.1 (0-0.2) 10^3/ul Absolute Nucleated RBC 0.0 10^3/ul Nucleated RBC % 0.0 INR (Anticoag Therapy) 1.18 H (0.82-1.09) APTT 35.0 (26.0-38.0) seconds Sodium 140 (135-145) mmol/L Potassium 3.9 (3.5-5.0) mmol/L Chloride 102 (101-111) mmol/L Carbon Dioxide 27 (22-32) mmol/L Anion Gap 11 (2-11) mmol/L BUN 9 (6-24) mg/dL Creatinine 1.07 H (0.51-0.95) mg/dL Est GFR ( Amer) 64.9 (>60) Est GFR (Non-Af Amer) 53.6 (>60) BUN/Creatinine Ratio 8.4 (8-20) Glucose 84 (70-100) mg/dL Lactic Acid (0.5-2.0) mmol/L Calcium 9.7 (8.6-10.3) mg/dL Total Bilirubin 0.60 (0.2-1.0) mg/dL AST 19 (13-39) U/L ALT 22 (7-52) U/L Alkaline Phosphatase 78 (34-104) U/L Troponin I 0.72 H* (<0.04) ng/mL C-Reactive Protein 22.17 H (<8.01) mg/L Total Protein 6.9 (6.4-8.9) g/dL Albumin 3.6 (3.2-5.2) g/dL Globulin 3.3 (2-4) g/dL Albumin/Globulin Ratio 1.1 (1-3) Lipase 44 (11.0-82.0) U/L 04/30/19 Range/Units 20:57 WBC (3.5-10.8) 10^3/uL RBC (3.70-4.87) 10^6 /uL Hgb (12.0-16.0) g/dL Hct (35-47) % MCV (80-97) fL MCH (27-31) pg MCHC (31-36) g/dL RDW (10.5-15) % Plt Count (150-450) 10^3/uL MPV (7.4-10.4) fL Neut % (Auto) % Lymph % (Auto) % [place] % (Auto) % Eos % (Auto) % Baso % (Auto) % Absolute Neuts (auto) (1.5-7.7) 10^3/ul Absolute Lymphs (auto) (1.0-4.8) 10^3/ul Absolute Monos (auto) (0-0.8) 10^3/ul Absolute Eos (auto) (0-0.6) 10^3/ul Absolute Basos (auto) (0-0.2) 10^3/ul Absolute Nucleated RBC 10^3/ul Nucleated RBC % INR (Anticoag Therapy) (0.82-1.09) APTT (26.0-38.0) seconds Sodium (135-145) mmol/L Potassium (3.5-5.0) mmol/L Chloride (101-111) mmol/L Carbon Dioxide (22-32) mmol/L Anion Gap (2-11) mmol/L BUN (6-24) mg/dL Creatinine (0.51-0.95) mg/dL Est GFR ( Amer) (>60) Est GFR (Non-Af Amer) (>60) BUN/Creatinine Ratio (8-20) Glucose (70-100) mg/dL Lactic Acid 0.9 (0.5-2.0) mmol/L Calcium (8.6-10.3) mg/dL Total Bilirubin (0.2-1.0) mg/dL AST (13-39) U/L ALT (7-52) U/L Alkaline Phosphatase (34-104) U/L Troponin I (<0.04) ng/mL C-Reactive Protein (<8.01) mg/L Total Protein (6.4-8.9) g/dL Albumin (3.2-5.2) g/dL Globulin (2-4) g/dL Albumin/Globulin Ratio (1-3) Lipase (11.0-82.0) U/L Assess/Plan/Problems-Billing Assessment: - Patient Problems (1) Nephrolithiasis Current Visit: Yes Status: Acute Code(s): N20.0 - CALCULUS OF KIDNEY SNOMED Code(s): 74426818 Comment: 3 mm L ureteral stone with mild obstruction and symptoms Small stone and will likely pass with conservative management At risk of hyperoxaluria and stones post bariatric surgery Appreciate Urology input Improving (2) UTI (urinary tract infection) Current Visit: Yes Status: Acute Comment: UA done after being on Ceftriaxone Culture pending Poss UTI On Ceftriaxone IV with improvement (3) ACS (acute coronary syndrome) Current Visit: Yes Status: Acute Code(s): I24.9 - ACUTE ISCHEMIC HEART DISEASE, UNSPECIFIED SNOMED Code(s): 685471283 Comment: Troponin elevation Unclear etiology Myocarditis/ ACS? PE ruled out on CTA On Heparin drip,plavix,coreg ( small dose HR low) for ACS Appreciate Dr Gavin input Possible Cath per d/w cardiology (4) Gastric bypass status for obesity Current Visit: Yes Status: Acute Code(s): Z98.84 - BARIATRIC SURGERY STATUS SNOMED Code(s): 295208314 Comment: Sleeve gastectomy in March Appreciate Dr Segal's input Similar presentation and hospitalization earlier in March Prior CT reviewed (5) GERD (gastroesophageal reflux disease) Current Visit: Yes Status: Acute Code(s): K21.9 - GASTRO-ESOPHAGEAL REFLUX DISEASE WITHOUT ESOPHAGITIS SNOMED Code(s): 330889301 Comment: on ppi gas no response to simethicone will add gi cocktail will consider adding sucralfate suspension if no improvement
[2019-05-02] MEDS: Al Hydrox/Mg Hydrox/Simet LIQ* 30 ML UDC PO SCH ×2 (11:49→17:08)
--- NOTE | 2019-05-02 11:53 | PN ---
Progress Note - Progress Note Date of Service: 05/02/19 Note: Surgery Progress Note S: Patient complains of nausea still and has had some dry heaving yesterday. Able to tolerate some small amounts of PO yesterday. Remains on hep gtt. Abdominal pain is much improved. +flatus and BM. CTA chest and TTE performed yesterday. O: Vital Signs - 24 hr 05/01/19 05/01/19 05/01/19 11:53 16:07 19:17 Temperature 98.1 F 98.3 F 98.6 F Pulse Rate 59 53 61 Respiratory 16 18 18 Rate Blood Pressure 124/60 121/57 141/64 (mmHg) O2 Sat by Pulse 98 97 96 Oximetry 05/01/19 05/01/19 05/02/19 20:13 23:19 03:07 Temperature 97.9 F 97.4 F Pulse Rate 67 60 Respiratory 18 20 20 Rate Blood Pressure 108/61 99/64 (mmHg) O2 Sat by Pulse 95 92 Oximetry 05/02/19 05/02/19 07:56 08:00 Temperature 98.4 F Pulse Rate 64 Respiratory 20 20 Rate Blood Pressure 122/60 (mmHg) O2 Sat by Pulse 95 Oximetry Laboratory Results - last 24 hr 05/01/19 05/01/19 05/01/19 09:06 09:06 17:36 WBC 8.3 RBC 5.00 H Hgb 14.9 Hct 45 MCV 89 MCH 30 MCHC 34 RDW 16 H Plt Count 174 MPV 10.2 Neut % (Auto) 72.1 Lymph % (Auto) 19.2 [place] % (Auto) 5.1 Eos % (Auto) 3.0 Baso % (Auto) 0.6 Absolute Neuts (auto) 6.0 Absolute Lymphs (auto) 1.6 Absolute Monos (auto) 0.4 Absolute Eos (auto) 0.2 Absolute Basos (auto) 0.0 Absolute Nucleated RBC 0.0 Nucleated RBC % 0.1 ESR 29 APTT 85.8 H Sodium Potassium Chloride Carbon Dioxide Anion Gap BUN 8 Creatinine 0.87 Est GFR ( Amer) 82.4 Est GFR (Non-Af Amer) 68.1 BUN/Creatinine Ratio Glucose Calcium Total Creatine Kinase 30 Troponin I C-Reactive Protein Triglycerides 147 Cholesterol 162 LDL Cholesterol 98 HDL Cholesterol 34.4 05/01/19 05/02/19 05/02/19 17:36 00:21 05:48 WBC 7.7 RBC 4.75 Hgb 14.3 Hct 42 MCV 89 MCH 30 MCHC 34 RDW 15 Plt Count 183 MPV 9.2 Neut % (Auto) 68.6 Lymph % (Auto) 20.9 [place] % (Auto) 6.1 Eos % (Auto) 3.7 Baso % (Auto) 0.7 Absolute Neuts (auto) 5.3 Absolute Lymphs (auto) 1.6 Absolute Monos (auto) 0.5 Absolute Eos (auto) 0.3 Absolute Basos (auto) 0.1 Absolute Nucleated RBC 0.0 Nucleated RBC % 0.1 ESR 30 H APTT 56.4 H Sodium Potassium Chloride Carbon Dioxide Anion Gap BUN Creatinine Est GFR ( Amer) Est GFR (Non-Af Amer) BUN/Creatinine Ratio Glucose Calcium Total Creatine Kinase Troponin I 0.69 H* C-Reactive Protein Triglycerides Cholesterol LDL Cholesterol HDL Cholesterol 05/02/19 05/02/19 05:48 05:48 WBC RBC Hgb Hct MCV MCH MCHC RDW Plt Count MPV Neut % (Auto) Lymph % (Auto) [place] % (Auto) Eos % (Auto) Baso % (Auto) Absolute Neuts (auto) Absolute Lymphs (auto) Absolute Monos (auto) Absolute Eos (auto) Absolute Basos (auto) Absolute Nucleated RBC Nucleated RBC % ESR APTT 53.0 H Sodium 139 Potassium 3.2 L Chloride 105 Carbon Dioxide 24 Anion Gap 10 BUN 6 Creatinine 0.78 Est GFR ( Amer) 93.5 Est GFR (Non-Af Amer) 77.3 BUN/Creatinine Ratio 7.7 L Glucose 83 Calcium 8.4 L Total Creatine Kinase Troponin I C-Reactive Protein 28.23 H Triglycerides 168 Cholesterol 154 LDL Cholesterol 90 HDL Cholesterol 30.0 Intake & Output 05/01/19 05/02/19 05/02/19 22:59 06:59 14:59 Intake Total 812 0 722 Output Total 200 Balance 812 -200 722 Weight 213 lb Intake: IV Fluids 674 549 NS (0.9%) 674 549 Heparin 118 173 Oral 20 0 0 Output: Urine 200 Physical exam: Abd: soft, non tender, non distended Radiology: CTA chest 05/01- reviewed, proximal L subclavian artery stenosis, lack of left vertebral artery opacification, no evidence of central pulmonray embolus, possible RUL bronchus mucus plugging TTE 05/01- LV EF- 55-60%, trace mitral regurg, mild aortic stenosis A/P: 53 F post op lap sleeve gastrectomy approximately 2 months ago who was admitted on 05/01/19 with abdominal pain, PO intolerance, found to have elevated troponins and nephrolithiasis. - Abd CT scan on 04/30 does not show evidence of obstruction, would recommend limited PO as tolerated at this time - Per cardiology, patient is on hep gtt and plavix for possible acute coronary syndrome. Last troponin remains mildly elevated. - No evidence of PE on CTA chest. Proximal L subclavian artery stenosis should be followed up with vascular surgery as an outpatient - Patient with improved abdominal pain, likely kidney stone has passed. Cr improved today and patient notes she has had good UOP with additional hydration (uncertain if all UOP has been completely documented in [employer])
[2019-05-02 13:38] LABS: Troponin I 0.61 ng/mL (<0.04)
[2019-05-02] MEDS: Heparin DRIP 25,000 UNITS(*) 25,000 UNITS/500 ML BAG IV SCH (22:35)
[2019-05-03] MEDS: Al Hydrox/Mg Hydrox/Simet LIQ* 30 ML UDC PO SCH ×5 (02:23→23:26)
[2019-05-03 03:13] LABS: ABS Basophils 0.1 10^3/ul (0-0.2); ABS Eosinophils 0.3 10^3/ul (0-0.6); ABS Lymphocytes 1.8 10^3/ul (1.0-4.8); ABS Monocytes 0.4 10^3/ul (0-0.8); ABS Neutrophils 4.9 10^3/ul (1.5-7.7); Eosinophil % 4.6 %; Hematocrit 41 % (35-47); Hemoglobin 13.7 g/dL (12.0-16.0); Lymphocyte % 23.6 %; Mean Corpuscular HGB Conc 34 g/dL (31-36); Mean Corpuscular Hemoglobin 30 pg (27-31); Mean Corpuscular Volume 89 fL (80-97); Mean Platelet Volume 9.2 fL (7.4-10.4); Platelet Count 170 10^3/uL (150-450); Red Blood Count 4.57 10^6 /uL (3.70-4.87); Red Cell Distribution Width 15 % (10.5-15); White Blood Count 7.5 10^3/uL (3.5-10.8)
[2019-05-03 03:28] LABS: BUN/Creatinine Ratio 6.1 (8-20); Calcium 8.2 mg/dL (8.6-10.3); EGFR African American 113.4 (>60); EGFR Non-African American 93.7 (>60); Potassium 3.4 mmol/L (3.5-5.0)
[2019-05-03] MEDS: Carvedilol TAB* 3.125 MG PO SCH ×2 (08:18→21:14)
[2019-05-03] MEDS: Pantoprazole TAB * 40 MG TAB PO SCH (08:18)
[2019-05-03] MEDS: Clopidogrel TAB* 75 MG PO SCH (08:18)
[2019-05-03] MEDS: cefTRIAXone(*) 1 GM in NS 0.9% 50 ML* 50 ML IVPB SCH (08:19)
[2019-05-03] MEDS: Ondansetron INJ* 2 MG/ML VIAL IV PRN (08:19)
[2019-05-03] MEDS: NS 0.9% 1000 ML** 1,000 ML IV SCH (08:21)
[2019-05-03] MEDS ORDERED: Aminophylline IV* 25 MG/ML 10 ML VIAL ONE (12:29)
[2019-05-03] MEDS ORDERED: Regadenoson* 0.4 MG/5 ML SYRINGE ONE (12:29)
[2019-05-03] MEDS ORDERED: Potassium Chlor TAB* 20 MEQ TAB.ER PO ONE (16:02)
--- NOTE | 2019-05-03 16:41 | PN ---
Progress Note - Progress Note Date of Service: 05/03/19 Note: Surgery Progress: S: no sig abd pain, but still having nausea, w/ occ dry heaves. Is sipping on clear liqs. Had nuclear stress test earlier. O: Vital Signs - 8 hr 05/03/19 11:53 Temperature 97.8 F Pulse Rate 57 Respiratory 20 Rate Blood Pressure 112/58 (mmHg) O2 Sat by Pulse 98 Oximetry Gen: appears comfortable; NAD Heart: reg Lungs: clear ant Abd: +BS. nondistended; nontympanitic. Soft, nontender to palp. A/P: 2 mo s/p sleeve gastrectomy w/ nephrolithiasis; ongoing nausea (this could be r/t her previous retching when she came in acutely); concerns for ACS. UGI scheduled for 6/4 a.m.
[2019-05-03] MEDS ORDERED: Ticagrelor* 90 MG TAB PO ONE (17:18)
[2019-05-03] MEDS ORDERED: Diazepam TAB(*) 5 MG PO PRN (17:21)
[2019-05-03] MEDS ORDERED: diPHENhydraMINE PO* 25 MG PO PRN (17:21)
--- NOTE | 2019-05-03 17:26 | PN ---
Subjective Date of Service: 05/03/19 Interval History: Ms. Dominguez is feeling fine today. She offers no complaints. Denies any CP, SOB, N/V, diaphoresis, dizziness. The stress test provoked some anxiety which is resolved upon my exam. Appetite is good and she would like dinner tonight. She was not able to obtain any shoes this morning so was not able to undergo an exercise stress test and had a chemical instead. She denies ever having any cardiac symptoms with exertion; however, her son does report that she often c/o dizziness after a moderate amount of activity. This has been going on for a number of years. No concerns from nursing. Tele: NSR in the 60s. Family History: Unchanged from Admission Social History: Unchanged from Admission Past Medical History: Unchanged from Admission Objective Active Medications: Acetaminophen (Tylenol Tab*) 650 mg PO Q4H PRN PAIN Al Hydrox/Mg Hydrox/Simethicone (Maalox Plus*) 30 ml PO Q6H ROSA Calcium Carbonate (Tums*) 500 mg PO TID PRN indigestion Carvedilol (Coreg Tab*) 3.125 mg PO BID ROSA Heparin Sodium (Porcine) (Heparin Vial(*)) 0 units IV .PER PROTOCOL ROSA Ceftriaxone Sodium 1 gm/ (Sodium Chloride) 50 mls @ 200 mls/hr IVPB Q24H ROSA Heparin Sodium/Dextrose (Heparin Drip 25,000 Units(*)) 25,000 units in 500 mls @ 0 mls/hr IV PER RATE ROSA; Protocol Sodium Chloride (Ns 0.9% 1000 Ml) 1,000 mls @ 75 mls/hr IV PER RATE [facility] Ondansetron HCl (Zofran Inj*) 4 mg IV Q6H PRN NAUSEA Pantoprazole Sodium (Protonix Tab*) 40 mg PO DAILY [facility] Vital Signs - 8 hr 05/03/19 11:53 Temperature 97.8 F Pulse Rate 57 Respiratory 20 Rate Blood Pressure 112/58 (mmHg) O2 Sat by Pulse 98 Oximetry Oxygen Devices in Use Now: None Appearance: Middle-aged female sitting in bed in NAD Eyes: No Scleral Icterus Ears/Nose/Mouth/Throat: Mucous Membranes Moist Neck: NL Appearance and Movements; NL JVP, Trachea Midline Respiratory: Symmetrical Chest Expansion and Respiratory Effort, Clear to Auscultation Cardiovascular: NL Sounds; No Murmurs; No JVD, RRR Abdominal: NL Sounds; No Tenderness; No Distention Extremities: No Edema Skin: No Rash or Ulcers Neurological: Alert and Oriented x 3 Lines/Tubes/Other Access: Clean, Dry and Intact Peripheral IV Nutrition: Taking PO's Result Diagrams: 05/03/19 03:03 05/03/19 03:03 Assess/Plan/Problems-Billing Assessment: Ms. Dominguez is a 53 yo F with PMH of GERD, anxiety, depression, and obesity s/p sleeve gastrectomy in March; who presented to the ED with c/o N/V and LLQ pain and was found to have elevated troponins. - Patient Problems (1) ACS (acute coronary syndrome) Code(s): I24.9 - ACUTE ISCHEMIC HEART DISEASE, UNSPECIFIED Comment: - Presented with N/V, but no CP - Trops peaked at 0.69 - PE ruled out on CTA - Stress test today shows intermediate risk - Appreciate Cardiology consult - Continue heparin gtt, carvedilol (2) Gastric bypass status for obesity Code(s): Z98.84 - BARIATRIC SURGERY STATUS Comment: - Sleeve gastectomy in March with Dr. Segal - Appreciate Surgery consult; recommends UGI - UGI will likely be tomorrow, though if she goes to the sugar laboratory assistant this will be delayed (3) Nephrolithiasis Code(s): N20.0 - CALCULUS OF KIDNEY Comment: - 3 mm left ureteral stone with mild obstruction and symptoms - Appreciate Urology consult; recommends IVF and pain management; no need for intervention at this time - Symptoms have resolved - D/c ceftriaxone as urine culture was negative (4) GERD (gastroesophageal reflux disease) Code(s): K21.9 - GASTRO-ESOPHAGEAL REFLUX DISEASE WITHOUT ESOPHAGITIS Comment : - Asymptomatic today - Continue pantoprazole (5) DVT prophylaxis Code(s): Z29.9 - ENCOUNTER FOR PROPHYLACTIC MEASURES, UNSPECIFIED Comment: - Heparin gtt (6) Full code status Code(s): Z78.9 - OTHER SPECIFIED HEALTH STATUS Comment: Status and Disposition: Inpatient. Anticipate d/c home when medically stable. Attending: Lila Leonardo
[2019-05-03] MEDS: Heparin DRIP 25,000 UNITS(*) 25,000 UNITS/500 ML BAG IV SCH (23:27)
[2019-05-03] MEDS ORDERED: NS 0.9% 1000 ML** 1,000 ML IV SCH (23:55)
[2019-05-04] MEDS ORDERED: Ticagrelor* 90 MG TAB PO SCH (06:00)
[2019-05-04] MEDS: Al Hydrox/Mg Hydrox/Simet LIQ* 30 ML UDC PO SCH ×2 (06:12→12:35)
[2019-05-04 06:32] LABS: ABS Eosinophils 0.4 10^3/ul (0-0.6); ABS Monocytes 0.5 10^3/ul (0-0.8); Hematocrit 42 % (35-47); Hemoglobin 14.1 g/dL (12.0-16.0); Lymphocyte % 14.8 %; Mean Corpuscular HGB Conc 34 g/dL (31-36); Mean Corpuscular Hemoglobin 30 pg (27-31); Mean Corpuscular Volume 88 fL (80-97); Mean Platelet Volume 9.9 fL (7.4-10.4); Nucleated Red Blood Cells % 0.1; Platelet Count 170 10^3/uL (150-450); Red Blood Count 4.72 10^6 /uL (3.70-4.87); Red Cell Distribution Width 15 % (10.5-15)
[2019-05-04 07:00] LABS: BUN/Creatinine Ratio 4.4 (8-20); Calcium 8.7 mg/dL (8.6-10.3); EGFR African American 109.5 (>60); EGFR Non-African American 90.5 (>60); Potassium 3.4 mmol/L (3.5-5.0)
[2019-05-04] MEDS: Carvedilol TAB* 3.125 MG PO SCH (07:30)
[2019-05-04] MEDS: Pantoprazole TAB * 40 MG TAB PO SCH (07:30)
[2019-05-04] MEDS ORDERED: Midazolam* 1 MG/ML 5 ML VIAL (5 MG) ONE (07:38)
[2019-05-04] MEDS ORDERED: VERAPAMIL 2.5 MG/ML 2 ML VIAL ** 5 mg/2 ml ONE (07:38)
[2019-05-04] MEDS ORDERED: fentaNYL* 50 MCG/ML 2 ML VIAL (100 MCG VIAL) ONE (07:38)
[2019-05-04] MEDS ORDERED: Heparin(*) 1000 UNIT/ML 10 ML VIAL CATH LAB IV ONE (07:38)
[2019-05-04] MEDS ORDERED: nitroGLYCERIN DRIP* 25,000 MCG/250 ML BTL ONE (07:39)
[2019-05-04] MEDS ORDERED: Lidocaine 1% INJ* 10 MG/ML 30 ML SDV ONE (07:39)
[2019-05-04] MEDS ORDERED: Iohexol 350 (CONTRAST) 200 ML MDV IV ONE (07:39)
[2019-05-04] MEDS ORDERED: Heparin 2 UNITS/ML IVPREMIX* 3,000 UNIT/1,500 ML BAG IV ONE (07:39)
[2019-05-04] MEDS ORDERED: Potassium Chlor TAB* 10 MEQ TAB.ER PO ONE (11:28)
[2019-05-04 12:54] VITALS: BP 122/48
--- NOTE | 2019-05-05 00:48 | CATH ---
CARDIAC CATHETERIZATION: DATE OF PROCEDURE: 05/04/19 - ROOM #453 PROCEDURE: Cardiac catheterization including coronary angiography. INDICATION: Abnormal troponin, abnormal stress test. The patient is a 53-year-old female with history of diabetes and hypertension, who was admitted to the hospital with right-sided chest pain and shortness of breath. The patient had an elevated troponin level. The patient underwent a chemical nuclear stress test yesterday, which demonstrated anterior wall ischemia, cardiac catheterization was recommended. DESCRIPTION OF PROCEDURE: The patient was brought to the cardiac catheterization lab in a fasting state. Informed consent had been obtained prior to the procedure. All labs have been reviewed. The patient was placed supine on the procedure table. Her radial area was prepped and draped in the usual fashion. 1% lidocaine was used for local anesthesia. The radial artery was then entered by a Seldinger technique and a 6-Armenian sheath introducer was placed and infusion of verapamil, nitroglycerin, and heparin was given through the sheath. The patient underwent coronary angiography using a TIG catheter. At the end of the procedure, all the sheath and catheters were removed. The patient tolerated the procedure well. No complications. A total of 90 cc of Visipaque dye was used, a total of 2.3 minutes of fluoro time was used. FINDINGS: 1. Left main artery. The left main was very short and bifurcated into the LAD and circumflex. There was no evidence of stenosis. 2. Left anterior descending artery. The LAD was normal in size; it gave off 2 diagonal vessels. There was no evidence of stenosis. 3. Left circumflex artery. The circumflex artery was normal in size; it gave off 3 obtuse marginal branches. There was no evidence of stenosis. 4. Right coronary artery. The RCA was a large dominant vessel; it gave off the PDA. There was no evidence of stenosis. IMPRESSION: Normal coronary arteries. RECOMMENDATION: The patient will be treated for possible acute coronary syndrome with Plavix for 4 months. [id number]/[facility] #: [id number] [facility]
--- NOTE | 2019-05-05 01:21 | DS ---
CC: Dr. Mildred Emanuel; Dr. Collin King.* DISCHARGE SUMMARY: DATE OF ADMISSION: 05/01/19 DATE OF DISCHARGE: 05/04/19 PRIMARY CARE PROVIDER: Dr. Mildred Emanuel. ATTENDING PHYSICIAN: Dr. Sandrita Cano * (dictation provided by Ana Paula Brown NP). PRIMARY DIAGNOSES: 1. Elevated troponins without evidence of coronary artery disease. 2. Nephrolithiasis. SECONDARY DIAGNOSES: 1. Status post gastric bypass. 2. Gastroesophageal reflux disease. STUDIES WHILE IN THE HOSPITAL: 1. Chest x-ray on 04/30/19 reads as no radiographic evidence for acute cardiopulmonary abnormality. 2. EKG on 04/30/19 shows normal sinus rhythm with a rate of 72, QTc 421. There are no previous EKGs for comparison. 3. Abdomen x-ray on 04/30/19 reads as normal KUB. 4. Abdomen and pelvis CT on 04/30/19 reads as mild obstructing 3-mm calculus distal 3rd left ureter. Expected findings post-sleeve gastrectomy. 5. EKG on 05/01/19 shows normal sinus rhythm with a rate of 67, QTC 419. No ischemic changes. 6. EKG on 05/01/19 shows normal sinus rhythm at a rate of 63, QTC 433. No ischemic changes. 7. Chest thorax CTA on 05/01/19 reads as evidence of high-grade stenosis of the proximal left subclavian artery. The left vertebral artery is non- opacified at this point in the arterial phase and may reflect a late appearance and suggest retrograde flow or subclavian steal. Status post gastric sleeve. Question of mucus plugging of a posterior right upper lobe bronchus and may reflect central bronchial stenosis. No essential pulmonary embolism is identified. 8. Transthoracic echocardiogram on 05/02/19 reads as the left ventricular systolic function is normal. The estimated ejection fraction is 55% to 60%. There is trace mitral regurgitation. A bicuspid aortic morphology cannot be excluded. The leaflets are mildly thickened. The findings are consistent with very mild aortic stenosis. 9. EKG on 05/02/19 shows normal sinus rhythm at a rate of 66, QTC of 431. No ischemic changes. 10. Nuclear cardiac stress test on 05/03/19 reads as findings most consistent with a large area of ischemia in the anterior wall. Assessment is high risk. CONSULTATIONS WHILE IN THE HOSPITAL: 1. Dr. Segal from Surgery on 05/01/19. 2. Dr. Gavin from Cardiology on 05/01/19. 3. Dr. Garcia from Urology on 05/01/19. HISTORY OF PRESENT ILLNESS AND HOSPITAL COURSE: Ms. Dominguez is a 53-year-old female with a past medical history of obesity, GERD, anxiety, depression, and a sleeve gasserectomy in March 2019 who presented to the emergency room on with complaints of nausea, vomiting, and left lower quadrant pain. Please see the history and physical by Dr. Leonardo for complete summary of the events leading up to this hospitalization. In short, the patient has had some complications status post gastrectomy, mostly relating to nausea and vomiting. She did develop left lower quadrant pain the day prior to admission though was having regular bowel movements. In the emergency room, she had imaging as noted above. She had labs which were remarkable for a mildly elevated creatinine at 1.07, an elevated CRP at 22, and an elevated troponin at 0.72. At that point, the patient was not having any cardiac symptoms, but because of her elevated troponin she was admitted by the hospitalist service. The patient was seen by Dr. Segal who performed her sleeve gastrectomy and at that point he recommended IV hydration and trending lab work. He did not feel that there was any evidence of obstruction at that point and felt as though she could continue her usual diet. She was seen in consultation by Dr. Gavin due to her elevated troponin. A PE was ruled out on CTA as noted above. The patient was started on a heparin drip and a low-dose beta-ana. She did have serial troponins and EKGs and troponins did peak on admission at 0.72. She did have a lipid panel which showed triglycerides of 168, total cholesterol of 154, LDL of 90, and HDL of 30. She was also seen by Dr. Garcia due to the calculus in the left ureter, although that point was not obstructive and he felt as though the patient was safe to pass the stone on her own and only recommended IV hydration. Ultimately, the patient's symptoms resolved. She never experienced any chest pain. She did undergo a nuclear cardiac stress test on 05/03/19, which indicated that she was high risk. Due to her high-risk stress test, the patient was seen again by Cardiology and it was decided that the patient would be taken to the laborer hoisting today, on 05/04/19. Again, the patient's abdominal pain, nausea, and vomiting had resolved, so there were no further concerns from a surgical or urological standpoint. The patient did undergo a cardiac catheterization this morning without any findings of coronary artery disease and Cardiology cleared the patient for discharge on appropriate medication regimen. I will note that there was some concern due to the possibility of subclavian steal syndrome noted on CTA. I have discussed this with the patient and she is aware that she will need outpatient followup for further imaging and/or evaluation by a vascular specialist. At this point, the patient reports feeling well. She offers no complaints. She has recovered well from her cardiac catheterization. On exam, she has no neurological deficits. She has a right radial access site which is clean, dry, and intact. There is a Tegaderm in place. Heart has a regular rate and rhythm without murmurs, rubs, or gallops. Lungs are clear to auscultation without rhonchi, wheezes, or rubs. Physical exam is otherwise benign. Ms. Dominguez is stable for discharge today. Vital signs are as follows: Temp 97.3, heart rate 56, respiratory rate 16, oxygen saturation 100% on room air, and blood pressure 122/48. DISCHARGE MEDICATIONS: New medications: 1. Atorvastatin 10 mg p.o. daily. 2. Clopidogrel 75 mg p.o. daily x3 months. 3. Ondansetron 4 mg p.o. q.6 hours p.r.n. nausea and vomiting. Continued Medications: 1. Acetaminophen 650 mg p.o. q.8 hours p.r.n. pain. 2. Omeprazole 40 mg p.o. daily. DISCHARGE PLAN: Ms. Dominguez will be discharged home. Activity will be as tolerated. The patient has been given a specific postcatheterization instruction and these include some activity restrictions. Diet will be bariatric advancing as tolerated. Medications are noted above. The patient did request a prescription for Zofran. Additionally, Cardiology advised that the patient should be placed on an antiplatelet and the patient does unfortunately have an allergy to ASPIRIN, so it was recommended that she be placed on Plavix for a total of 3 months. I have sent in a 30-day supply with 2 additional refills, so she should not need any further medication after that unless otherwise instructed by Cardiology. Additionally, I have placed the patient on a moderate dose statin due to her CT findings and concern for subclavian stenosis. She can continue her other usual medications. She will need to follow up with Dr. Segal as previously instructed and he would like to do an outpatient upper GI series on her. She will additionally need to follow up with Dr. King next week and I have scheduled her an appointment for at 1:30 p.m. She should follow up with her primary care provider in 4 to 7 days. Again, there was some concern for subclavian steal syndrome on CTA and so I would recommend further imaging evaluation and possible referral to a vascular specialist. The patient has been advised to return to the emergency room or the nearest hospital for any worsening of symptoms, shortness of breath , lightheadedness, dizziness, chest discomfort, high fevers, chills, night sweats, loss of consciousness, or any other worrisome signs or symptoms. DISCHARGE CONDITION: Stable. DISCHARGE DISPOSITION: Home. This is a summarized report of a complex medical history and hospital stay, for further details please see the entire medical record. TIME SPENT: Approximately 50 minutes were spent on this discharge. ANA PAULA BROWN NP [id number]/[facility] #: [id number] OSKAR
== END 2019-05-04 16:07 | disposition home or self-care (01) | DRG 465 ==
LOC: ED 18:21 → MEDTELE 05-01 00:25 → OBSVTOIN 05-01 08:46
PROVIDERS: ADMIT Hospitalist; ATTEND Internal Medicine
PROC: 4A02XM4 Measurement of Cardiac Total Activity, External Approach (ICD-10-PCS; 2019-05-03)
PROC: B2111ZZ Fluoroscopy of Multiple Coronary Arteries using Low Osmolar Contrast (ICD-10-PCS; principal; 2019-05-04 07:00)
DX: N20.2 Calculus of kidney with calculus of ureter (principal); K50.90 Crohn's disease, unspecified, without complications; G45.8 Other transient cerebral ischemic attacks and related syndromes; R74.8 Abnormal levels of other serum enzymes; G43.909 Migraine, unspecified, not intractable, without status migrainosus; K21.9 Gastro-esophageal reflux disease without esophagitis; F41.9 Anxiety disorder, unspecified; E11.9 Type 2 diabetes mellitus without complications; F32.9 Major depressive disorder, single episode, unspecified; I10 Essential (primary) hypertension; E66.01 Morbid (severe) obesity due to excess calories; E86.0 Dehydration; I08.0 Rheumatic disorders of both mitral and aortic valves; Z88.0 Allergy status to penicillin; Z88.8 Allergy status to other drugs, medicaments and biological substances; Z91.040 Latex allergy status; Z83.2 Family history of diseases of the blood and blood-forming organs and certain disorders involving the immune mechanism; Z98.84 Bariatric surgery status; Z87.891 Personal history of nicotine dependence; Z68.39 Body mass index [BMI] 39.0-39.9, adult; Z80.8 Family history of malignant neoplasm of other organs or systems; Z79.02 Long term (current) use of antithrombotics/antiplatelets
CPT/HCPCS: 36415; 71045; 71275; 74018; 74177; 78452; 80048; 80053; 80061; 81003; 81015; 82550; 82565; 83605; 83690; 83735; 84484; 84520; 85025; 85379; 85610; 85652; 85730; 86140; 87086; 93005; 93017; 93306; 93458; 99156; 99284; A9270-GY; A9502; G0378; J0280; J0696; J1644; J2250; J2405; J2785; J3010; Q9967